=== PATIENT | female | born 1955 ===

== ENCOUNTER 2023-12-31 08:48 | Outpatient (AMB) | payer MEDICARE, SELFPAY ==
[2023-12-31 08:56] VITALS: BP 112/64; PULSE 72; O2SAT 98; BMI 29.0
--- NOTE | 2023-12-31 08:56 | A.OFFVIS_ITS ---
Vital Signs 12/31/23 08:56 Height 5 ft Weight 148 lb 9.465 oz BMI 29.0 BP 112/64 Blood Pressure Location Rt brachial Position Sitting Pulse 72 Pulse Source Pulse Oximeter Pulse Oximetry (%) 98 Oxygen Delivery Method Room Air Intake Visit Reasons: Joint Pain/cm Intake Note: New pt presents today for joint pain consult. FH of Lupus Reports pain in shoulders, arms, hands and feet since. Pain started November 2022. 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 The condition started about a year ago when she started having will joint pain and stiffness including her shoulders, hands, neck, knees. She went to PT which was helpful, afterwards her symptoms back, she went to another round of physical therapy, this time it was not helpful. She states that she is having pain and stiffness in her shoulders, stiffness in her hands, knees, ankles and feet. Morning stiffness of her hands lasts 1-2 hours. Does not believe she has any joint swelling. She denies any weight change or fever. She has noted a change and increased pigmentation on her PIP is bilaterally more noticeable on the right. She denies any skin rashes otherwise. Was prescribed Celebrex which was helpful, she was prescribed prednisone and it did not help. Tylenol also provide some relief. She denies any history of DVT/PE. She stated that in 1987 she was diagnosed with rheumatic fever and was prescribed penicillin, she was allergic to penicillin and she was switched to another antibiotic which she took for a total of 3 years. She has not had any current rheumatic fever. Her sister has SLE as well as her niece [facility] Medical History Rheumatic fever Papilloma of breast Mixed dyslipidemia Alopecia Anxiety Family History Brother Family history of lupus erythematosus Sister Lupus (systemic lupus erythematosus) Family/Other Family history of lupus erythematosus Mother Esophageal cancer Mother Aneurysm Social History Household Members: Family Alcohol intake: current Alcohol intake frequency: does not drink Patient Tobacco Use Status: Never used Tobacco Current occupational status: employed Female Reproductive History Menstrual Total pregnancies: 1 Number of Living Children: 1 Review of Systems Const Denies fever(s), Denies weight gain and Denies weight loss Eyes Reports blurry vision ENT Reports dry mouth Resp Reports cough GI Reports constipation and Reports heartburn Musc Reports arthralgias, Denies joint swelling and Reports stiffness Skin/Breast Reports rash Psych Reports abnormal sleep pattern and Reports anxiety Physical Exam Vital Signs: Last Vital Signs Pulse 72 12/31/23 08:56 BP 112/64 12/31/23 08:56 Pulse Ox 98 12/31/23 08:56 Oxygen Delivery Method Room Air 12/31/23 08:56 BMI result Body Mass Index 29.0 Const General: cooperative, healthy appearing and comfortable Nutritional Appearance: overweight Orientation/consciousness: patient oriented x3 Limitations: no limitations HEENT Head: Yes normocephalic and Yes atraumatic Mouth: moist mucous membranes Resp Effort & Inspection: normal respiratory effort and able to speak in complete sentences Auscultation: clear to auscultation bilaterally Cardio Rate: regular rate Rhythm: regular rhythm Skin Other: Mildly increased pigmentation on the dorsum of her PIPs General skin exam: no rashes or lesions noted Neuro General: patient oriented x3 Extrem Other: Bilateral limited shoulder abduction Normal range of motion of both elbows without pain Minimal bilateral wrist tenderness Bilateral wrist pain with full flexion and extension No MCP tenderness bilaterally Multiple tender PIP is bilaterally 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 HISTORY: bunion, heavy feelings ? TECHNIQUE: 3 views radiographs of the bilateral feet ? COMPARISON: None ? FINDINGS: Right: The foot demonstrates normal mineralization with no fracture or malalignment. Hallux valgus deformity. The visualized articulations are normal. Posterior recess joint effusion. No significant soft tissue swelling is identified. ? Left: No acute fracture or dislocation. Decreased mineralization. Hallux valgus deformity. The visualized articulations are grossly within normal limits. Small calcaneal spur. ? IMPRESSION IMPRESSION: No acute fracture or dislocation of the bilateral feet Mild bilateral hallux valgus deformities ++++RF +ZBIGNIEW 1:640 homogeneous Assessment & Plan Assessment & Plan (1) Inflammatory arthritis: Code(s): M19.90 - Unspecified osteoarthritis, unspecified site Category: Medical Plan: This is a 68-year-old female who presents for evaluation of multiple joint pain. On exam she has multiple tender joints. Recent labs showed significantly elevated rheumatoid factor, positive ZBIGNIEW. She has history of rheumatic fever. She has a sister with SLE. Will order comprehensive serology to screen for underlying autoimmune rheumatic disease. Check x-rays of involved joints Start Medrol therapeutic trial Follow-up in 4-5 weeks Plan I spent 47 minutes reviewing patient's chart, evaluating patient, ordering diagnostic workup, counseling patient and documenting in the chart Orders: Orders ZBIGNIEW Reflex Titer and Pattern Today M32.9 - Systemic lupus erythematosus, unspecified Anti DNA DS Antibody Today M32.9 - Systemic lupus erythematosus, unspecified Complement C4 Today M32.9 - Systemic lupus erythematosus, unspecified C Reactive Protein Today M32.9 - Systemic lupus erythematosus, unspecified Erythrocyte Sedimentation Rate Today M32.9 - Systemic lupus erythematosus, unspecified Sjogren's Antibodies Today M32.9 - Systemic lupus erythematosus, unspecified UA w Microscopic Today M32.9 - Systemic lupus erythematosus, unspecified Comprehensive Met. Panel Today M32.9 - Systemic lupus erythematosus, unspecified Immunofixation Pnl, Serum Today M32.9 - Systemic lupus erythematosus, unspecified Protein Electrophoresis, Serum Today M32.9 - Systemic lupus erythematosus, unspecified Cyclic Citrullinated Peptide Today M25.50 - Pain in unspecified joint Rheumatoid Factor Today M25.50 - Pain in unspecified joint Angiotensin Converting Enzyme Today D86.9 - Sarcoidosis, unspecified MSA Panel Extended Today M60.9 - Myositis, unspecified Scleroderma 12 Panel Today M34.9 - Systemic sclerosis, unspecified Creatine Kinase Total Today G72.9 - Myopathy, unspecified XR ankle LT min 3V Today M1.90 - Unspecified osteoarthritis, unspecified site XR ankle RT min 3V Today M1. - Unspecified osteoarthritis, unspecified site XR hand wrist LT Today M1 - Unspecified osteoarthritis, unspecified site XR shoulder LT min 2V Today M1.90 - Unspecified osteoarthritis, unspecified site XR shoulder RT min 2V Today M1 - Unspecified osteoarthritis, unspecified site Anti Extractable Nuclear Ag Today M3.9 - Systemic lupus erythematosus, unspecified Complement C3 Today M3.9 - Systemic lupus erythematosus, unspecified DNA Double Stranded-Crithidia Today M3.9 - Systemic lupus erythematosus, unspecified Protein Creatinine Ratio, Ur Today M3.9 - Systemic lupus erythematosus, unspecified Complete Blood Count Auto Diff Today M3. - Systemic lupus erythematosus, unspecified Hepatitis A,B,C Profile Today Z11.59 - Encounter for screening for other viral diseases T Spot TB Today Z11.7 - Encounter for testing for latent tuberculosis infection XR hand wrist RT Today M1 - Unspecified osteoarthritis, unspecified site Medications: New methylprednisolone (Medrol) take 4 tabs daily for 1 week, 3 tabs daily for 1 week, 2 tabs daily for 1 week, 1 tab daily for 1 week then stop 70 tabs 0RF Coding Level of Care Code New Pt Level 4 (48062) Diagnoses Inflammatory arthritis
== END 2023-12-31 09:32 | disposition home or self-care (01) ==
PROVIDERS: PCP Physician Assistant Medical; Visit Provider Student in an Organized Health Care Education/Training Program
DX: M19.90 Unspecified osteoarthritis, unspecified site (principal)
CPT/HCPCS: 99204

== ENCOUNTER 2023-12-31 09:51 | Outpatient (REF) | payer MEDICARE, SELFPAY ==
[2023-12-31 11:27] LABS: Appearance Urine Clear; Color Urine Yellow; Glucose Urine UA Negative (Negative); Leukocyte Esterase Urine Negative (Negative); Nitrite Urine Negative (Negative); UMIC TRIGGER UA YES; Urine Blood Trace (Negative); Urine Ketones Negative (Negative); Urine Protein Negative (Neg-Trace)
[2023-12-31 11:31] LABS: Bacteria Urine None Seen (None Seen); Hyaline Casts Urine 0-2 /LPF (0-2); Squamous Epithelial Cell Urine 0-2 /HPF (0-2); WBC Urine 0-5 /HPF (0-5)
[2023-12-31 11:37] LABS: MANUAL DIFF FLAG NO
[2023-12-31 11:41] LABS: Basophils Percent Auto 0.6 % (0-2); Eosinophils Absolute Auto 0.2 X10*3/uL (0.0-0.4); Eosinophils Percent Auto 3.4 % (0-4); Imm Gran Abs Auto 0.02 X10*3/uL (0.00-0.03); Imm Gran Pct Auto 0.3 % (0.0-0.4); Lymphocytes Absolute Auto 2.9 X10*3/uL (1.2-4.9); Lymphocytes Percent Auto 41.2 % (20-40); Mean Corpuscular HGB Conc 32.4 g/dl (31.0-35.0); Mean Corpuscular Hemoglobin 28.6 pg (27.0-33.0); Mean Corpuscular Volume 88.3 fL (80.0-98.0); Mean Platelet Volume 9.1 fL (9.4-12.3); Monocytes Absolute Auto 0.5 X10*3/uL (0.1-1.2); Neutrophils Absolute Auto 3.3 x10*3/uL (2.0-8.3); Neutrophils Percent Auto 47.5 % (45-73); Platelet Count 340 X10*3/uL (160-400); Red Blood Count 4.19 X10*6/uL (4.20-5.50); Red Cell Distribution Width 13.2 % (11.0-16.0)
[2023-12-31 12:06] LABS: Alanine Aminotransferase 13 U/L (0-31); Albumin Level 4.2 g/dL (3.5-5.0); Alkaline Phosphatase 100 U/L (39-117); Anion Gap 10 (12-20); Aspartate Amino Transferase 17 U/L (5-31); Bilirubin Total 0.4 mg/dL (0.0-1.0); Blood Urea Nitrogen 10 mg/dL (9-16); C Reactive Protein 0.31 mg/dL (< or = 0.50); Carbon Dioxide 29 mmol/L (22-29); Chloride 105 mmol/L (96-108); Creatinine Urine 48.71 mg/dL; Estimated Glomerular Filt Rate > 60; Glucose Random 89 mg/dL (60-115); Potassium 3.2 mmol/L (3.3-5.1); Protein/Creatinine Ratio, Ur 0.18 (<0.2); Sodium 141 mmol/L (135-145); Total Protein 8.2 g/dL (6.5-8.0); Total Protein Urine Random 9 mg/dL (<12)
[2023-12-31 12:20] LABS: HBS Num1 346.88 mIU/mL (0-7.99); HBc Num1 0.19 S/CO (0.00-0.79); HBsAGNum1 0.24 S/CO (0.00-0.99); Hepatitis A Antibody IgM 0.31 Index (0-0.79); Hepatitis B Core Antibody Nonreactive (Nonreactive); Hepatitis B Surface Antigen Negative (Negative); ~HepC Num1 0.33 S/CO (0.00-0.79); ~Hepatitis A Antibody IgM Nonreactive (Nonreactive); ~Hepatitis B Surface Antibody REACTIVE (Nonreactive); ~Hepatitis C Antibody Nonreactive (Nonreactive)
[2023-12-31 12:22] LABS: Rheumatoid Factor 329.9 IU/mL (<15.0)
[2023-12-31 12:25] LABS: Erythrocyte Sedimentation Rate 50 MM/HR (0-20)
[2024-01-01 20:09] LABS: Anti DNA DS Antibody 1 IU/mL; Antibody to SS-A Antigen <1.0 NEG AI (<1.0 NEG); Antibody to SS-B Antigen <1.0 NEG AI (<1.0 NEG); SM/Ribonucleoprotein Ab 1.1 POS AI (<1.0 NEG); Smith Protein <1.0 NEG AI (<1.0 NEG)
[2024-01-01 22:18] LABS: Complement C3 128 mg/dL (83-193)
[2024-01-02 14:44] LABS: Cyclic Citrullinated Peptide >250 UNITS
[2024-01-02 21:19] LABS: Prot Elec - Alpha1 0.3 g/dL (0.2-0.3); Prot Elec - Alpha2 0.8 g/dL (0.5-0.9); Prot Elec - Beta 1 0.5 g/dL (0.4-0.6); Prot Elec - Beta 2 0.5 g/dL (0.2-0.5); Prot Elec - Gamma 1.7 g/dL (0.8-1.7); Prot Elec - Total Protein 7.7 g/dL (6.1-8.1)
[2024-01-05 14:28] LABS: Anti Nuclear Antibody Pattern Nuclear, Homogeneous; Anti Nuclear Antibody Screen POSITIVE (NEGATIVE)
[2024-01-05 21:53] LABS: TS Negative Control Passed; TS Panel A 1; TS Panel B 0; TS Positive Control Passed; TSpotTB Negative (Negative)
[2024-01-05 22:08] LABS: Angiotensin Converting Enzyme 35 U/L (9-67); IgA 293 mg/dL (70-320); IgG 1449 mg/dL (600-1540); IgM 120 mg/dL (50-300)
[2024-01-07 16:39] LABS: DNAds, Crithidia Antibody 1:40 titer (<1:10); DNAds, Crithidia Antibody Positive (Negative)
[2024-01-12 11:39] LABS: Cytosolic 5'nuc 1A Ab IgG <5 Units; Ej Ab <11 SI (<11); HMGCR Ab IgG <2 CU (<20); Jo-1 Ab <11 SI (<11); MDA5 Ab <11 SI (<11); Mi-2 alpha Ab <11 SI (<11); Mi-2 beta Ab <11 SI (<11); NXP-2 (MJ) Ab <11 SI (<11); Oj Ab <11 SI (<11); Pl-12 Ab 16 SI (<11); Pl-7 Ab <11 SI (<11); SRP Ab <11 SI (<11); TIF1 gamma Ab <11 SI (<11)
[2024-01-13 16:48] LABS: Centromere Protein A Ab <11 SI (<11); Centromere Protein B Ab <11 SI (<11); Fibrillarin Ab <11 SI (<11); PM SCL 100 Ab <11 SI (<11); PM SCL 75 Ab <11 SI (<11); RNA Polymerase III RP11 Ab <11 SI (<11); RNA Polymerase III RP155 Ab <11 SI (<11); SCL-70 Extractable Nuclear Ab <11 SI (<11); Th-To Ab 85 SI (<11); U1 SNRNP RNP 70KD <11 SI (<11); U1 SNRNP RNP A <11 SI (<11); U1 SNRNP RNP C <11 SI (<11)
== END 2023-12-31 09:52 | disposition home or self-care (01) ==
LOC: HO.10HDL 09:51
PROVIDERS: Visit Provider Student in an Organized Health Care Education/Training Program
DX: M19.90 Unspecified osteoarthritis, unspecified site (principal); M32.9 Systemic lupus erythematosus, unspecified; M25.50 Pain in unspecified joint; M60.9 Myositis, unspecified; D86.9 Sarcoidosis, unspecified; G72.9 Myopathy, unspecified; M34.9 Systemic sclerosis, unspecified; Z11.59 Encounter for screening for other viral diseases; Z11.7 Encounter for testing for latent tuberculosis infection; Z72.89 Other problems related to lifestyle
CPT/HCPCS: 36415; 80053; 81001; 82164; 82550; 82570; 82784; 83516; 83520; 84156; 84165; 84182; 85025; 85652; 86038; 86039; 86140; 86160; 86200; 86225; 86235; 86255; 86334; 86431; 86481; 86704; 86706; 86709; 86803; 87340; 99202

== ENCOUNTER 2024-02-02 12:17 | Outpatient (REF) | payer MEDICARE, SELFPAY ==
--- NOTE | ~2024-02-02 | XR_ITS ---
EXAMINATION: 1. RADIOGRAPHS LEFT SHOULDER 2. RADIOGRAPHS RIGHT SHOULDER 3. RADIOGRAPHS LEFT HAND/WRIST 4. RADIOGRAPHS RIGHT HAND/WRIST 5. RADIOGRAPHS LEFT ANKLE 6. RADIOGRAPHS RIGHT ANKLE CLINICAL INFORMATION: Osteoarthritis COMPARISON: None TECHNIQUE: 4 views of each shoulder, 4 views of each hand/wrist and 3 views of each ankle were obtained. FINDINGS: Right shoulder: Visualized portions of the proximal right humerus demonstrate no fracture. Humeral head demonstrates good articulation with the glenoid fossa. There are mild degenerative changes of the right glenohumeral and acromioclavicular joints. Visualized right-sided ribs and lung parenchyma are unremarkable. Left shoulder: Visualized portions of the proximal left humerus demonstrate no fracture. Humeral head demonstrates good articulation with the glenoid fossa. There are mild degenerative changes of the left glenohumeral and acromioclavicular joints. Visualized left-sided ribs and lung parenchyma are unremarkable. Right hand/wrist: Diffuse osteopenia. Visualized portion of the distal radius and demonstrate no fracture. Carpal rows are maintained. No carpal bone fracture. No metacarpal or phalangeal fracture. Mild degenerative changes of scattered IP joints. No localized soft tissue swelling. No radiopaque foreign body. Left hand/wrist: Diffuse osteopenia. Visualized portion of the distal radius and demonstrate no fracture. Carpal rows are maintained. No carpal bone fracture. No metacarpal or phalangeal fracture. Mild degenerative changes of scattered IP joints. No localized soft tissue swelling. No radiopaque foreign body. Right ankle: Visualized portion of the distal tibia and fibula demonstrate no fracture. Ankle mortise is well-maintained. No localized soft tissue swelling. No radiopaque foreign body. No gross ankle joint effusion. Small plantar calcaneal enthesophyte. Left ankle: Visualized portion of the distal tibia and fibula demonstrate no fracture. Ankle mortise is well-maintained. No localized soft tissue swelling. No radiopaque foreign body. Small plantar calcaneal enthesophyte. XR/XR ankle LT min 3V IMPRESSION: 1. Diffuse osteopenia. 2. Mild degenerative changes of both shoulders. 3. Mild degenerative changes of both hands and wrists without fracture. 4. Unremarkable radiographs of the bilateral ankles.
--- NOTE | ~2024-02-02 | XR_ITS ---
EXAMINATION: 1. RADIOGRAPHS LEFT SHOULDER 2. RADIOGRAPHS RIGHT SHOULDER 3. RADIOGRAPHS LEFT HAND/WRIST 4. RADIOGRAPHS RIGHT HAND/WRIST 5. RADIOGRAPHS LEFT ANKLE 6. RADIOGRAPHS RIGHT ANKLE CLINICAL INFORMATION: Osteoarthritis COMPARISON: None TECHNIQUE: 4 views of each shoulder, 4 views of each hand/wrist and 3 views of each ankle were obtained. FINDINGS: Right shoulder: Visualized portions of the proximal right humerus demonstrate no fracture. Humeral head demonstrates good articulation with the glenoid fossa. There are mild degenerative changes of the right glenohumeral and acromioclavicular joints. Visualized right-sided ribs and lung parenchyma are unremarkable. Left shoulder: Visualized portions of the proximal left humerus demonstrate no fracture. Humeral head demonstrates good articulation with the glenoid fossa. There are mild degenerative changes of the left glenohumeral and acromioclavicular joints. Visualized left-sided ribs and lung parenchyma are unremarkable. Right hand/wrist: Diffuse osteopenia. Visualized portion of the distal radius and demonstrate no fracture. Carpal rows are maintained. No carpal bone fracture. No metacarpal or phalangeal fracture. Mild degenerative changes of scattered IP joints. No localized soft tissue swelling. No radiopaque foreign body. Left hand/wrist: Diffuse osteopenia. Visualized portion of the distal radius and demonstrate no fracture. Carpal rows are maintained. No carpal bone fracture. No metacarpal or phalangeal fracture. Mild degenerative changes of scattered IP joints. No localized soft tissue swelling. No radiopaque foreign body. Right ankle: Visualized portion of the distal tibia and fibula demonstrate no fracture. Ankle mortise is well-maintained. No localized soft tissue swelling. No radiopaque foreign body. No gross ankle joint effusion. Small plantar calcaneal enthesophyte. Left ankle: Visualized portion of the distal tibia and fibula demonstrate no fracture. Ankle mortise is well-maintained. No localized soft tissue swelling. No radiopaque foreign body. Small plantar calcaneal enthesophyte. XR/XR ankle RT min 3V IMPRESSION: 1. Diffuse osteopenia. 2. Mild degenerative changes of both shoulders. 3. Mild degenerative changes of both hands and wrists without fracture. 4. Unremarkable radiographs of the bilateral ankles.
--- NOTE | ~2024-02-02 | XR_ITS ---
EXAMINATION: 1. RADIOGRAPHS LEFT SHOULDER 2. RADIOGRAPHS RIGHT SHOULDER 3. RADIOGRAPHS LEFT HAND/WRIST 4. RADIOGRAPHS RIGHT HAND/WRIST 5. RADIOGRAPHS LEFT ANKLE 6. RADIOGRAPHS RIGHT ANKLE CLINICAL INFORMATION: Osteoarthritis COMPARISON: None TECHNIQUE: 4 views of each shoulder, 4 views of each hand/wrist and 3 views of each ankle were obtained. FINDINGS: Right shoulder: Visualized portions of the proximal right humerus demonstrate no fracture. Humeral head demonstrates good articulation with the glenoid fossa. There are mild degenerative changes of the right glenohumeral and acromioclavicular joints. Visualized right-sided ribs and lung parenchyma are unremarkable. Left shoulder: Visualized portions of the proximal left humerus demonstrate no fracture. Humeral head demonstrates good articulation with the glenoid fossa. There are mild degenerative changes of the left glenohumeral and acromioclavicular joints. Visualized left-sided ribs and lung parenchyma are unremarkable. Right hand/wrist: Diffuse osteopenia. Visualized portion of the distal radius and demonstrate no fracture. Carpal rows are maintained. No carpal bone fracture. No metacarpal or phalangeal fracture. Mild degenerative changes of scattered IP joints. No localized soft tissue swelling. No radiopaque foreign body. Left hand/wrist: Diffuse osteopenia. Visualized portion of the distal radius and demonstrate no fracture. Carpal rows are maintained. No carpal bone fracture. No metacarpal or phalangeal fracture. Mild degenerative changes of scattered IP joints. No localized soft tissue swelling. No radiopaque foreign body. Right ankle: Visualized portion of the distal tibia and fibula demonstrate no fracture. Ankle mortise is well-maintained. No localized soft tissue swelling. No radiopaque foreign body. No gross ankle joint effusion. Small plantar calcaneal enthesophyte. Left ankle: Visualized portion of the distal tibia and fibula demonstrate no fracture. Ankle mortise is well-maintained. No localized soft tissue swelling. No radiopaque foreign body. Small plantar calcaneal enthesophyte. XR/XR hand wrist LT IMPRESSION: 1. Diffuse osteopenia. 2. Mild degenerative changes of both shoulders. 3. Mild degenerative changes of both hands and wrists without fracture. 4. Unremarkable radiographs of the bilateral ankles.
--- NOTE | ~2024-02-02 | XR_ITS ---
EXAMINATION: 1. RADIOGRAPHS LEFT SHOULDER 2. RADIOGRAPHS RIGHT SHOULDER 3. RADIOGRAPHS LEFT HAND/WRIST 4. RADIOGRAPHS RIGHT HAND/WRIST 5. RADIOGRAPHS LEFT ANKLE 6. RADIOGRAPHS RIGHT ANKLE CLINICAL INFORMATION: Osteoarthritis COMPARISON: None TECHNIQUE: 4 views of each shoulder, 4 views of each hand/wrist and 3 views of each ankle were obtained. FINDINGS: Right shoulder: Visualized portions of the proximal right humerus demonstrate no fracture. Humeral head demonstrates good articulation with the glenoid fossa. There are mild degenerative changes of the right glenohumeral and acromioclavicular joints. Visualized right-sided ribs and lung parenchyma are unremarkable. Left shoulder: Visualized portions of the proximal left humerus demonstrate no fracture. Humeral head demonstrates good articulation with the glenoid fossa. There are mild degenerative changes of the left glenohumeral and acromioclavicular joints. Visualized left-sided ribs and lung parenchyma are unremarkable. Right hand/wrist: Diffuse osteopenia. Visualized portion of the distal radius and demonstrate no fracture. Carpal rows are maintained. No carpal bone fracture. No metacarpal or phalangeal fracture. Mild degenerative changes of scattered IP joints. No localized soft tissue swelling. No radiopaque foreign body. Left hand/wrist: Diffuse osteopenia. Visualized portion of the distal radius and demonstrate no fracture. Carpal rows are maintained. No carpal bone fracture. No metacarpal or phalangeal fracture. Mild degenerative changes of scattered IP joints. No localized soft tissue swelling. No radiopaque foreign body. Right ankle: Visualized portion of the distal tibia and fibula demonstrate no fracture. Ankle mortise is well-maintained. No localized soft tissue swelling. No radiopaque foreign body. No gross ankle joint effusion. Small plantar calcaneal enthesophyte. Left ankle: Visualized portion of the distal tibia and fibula demonstrate no fracture. Ankle mortise is well-maintained. No localized soft tissue swelling. No radiopaque foreign body. Small plantar calcaneal enthesophyte. XR/XR hand wrist RT IMPRESSION: 1. Diffuse osteopenia. 2. Mild degenerative changes of both shoulders. 3. Mild degenerative changes of both hands and wrists without fracture. 4. Unremarkable radiographs of the bilateral ankles.
--- NOTE | ~2024-02-02 | XR_ITS ---
EXAMINATION: 1. RADIOGRAPHS LEFT SHOULDER 2. RADIOGRAPHS RIGHT SHOULDER 3. RADIOGRAPHS LEFT HAND/WRIST 4. RADIOGRAPHS RIGHT HAND/WRIST 5. RADIOGRAPHS LEFT ANKLE 6. RADIOGRAPHS RIGHT ANKLE CLINICAL INFORMATION: Osteoarthritis COMPARISON: None TECHNIQUE: 4 views of each shoulder, 4 views of each hand/wrist and 3 views of each ankle were obtained. FINDINGS: Right shoulder: Visualized portions of the proximal right humerus demonstrate no fracture. Humeral head demonstrates good articulation with the glenoid fossa. There are mild degenerative changes of the right glenohumeral and acromioclavicular joints. Visualized right-sided ribs and lung parenchyma are unremarkable. Left shoulder: Visualized portions of the proximal left humerus demonstrate no fracture. Humeral head demonstrates good articulation with the glenoid fossa. There are mild degenerative changes of the left glenohumeral and acromioclavicular joints. Visualized left-sided ribs and lung parenchyma are unremarkable. Right hand/wrist: Diffuse osteopenia. Visualized portion of the distal radius and demonstrate no fracture. Carpal rows are maintained. No carpal bone fracture. No metacarpal or phalangeal fracture. Mild degenerative changes of scattered IP joints. No localized soft tissue swelling. No radiopaque foreign body. Left hand/wrist: Diffuse osteopenia. Visualized portion of the distal radius and demonstrate no fracture. Carpal rows are maintained. No carpal bone fracture. No metacarpal or phalangeal fracture. Mild degenerative changes of scattered IP joints. No localized soft tissue swelling. No radiopaque foreign body. Right ankle: Visualized portion of the distal tibia and fibula demonstrate no fracture. Ankle mortise is well-maintained. No localized soft tissue swelling. No radiopaque foreign body. No gross ankle joint effusion. Small plantar calcaneal enthesophyte. Left ankle: Visualized portion of the distal tibia and fibula demonstrate no fracture. Ankle mortise is well-maintained. No localized soft tissue swelling. No radiopaque foreign body. Small plantar calcaneal enthesophyte. XR/XR shoulder RT min 2V IMPRESSION: 1. Diffuse osteopenia. 2. Mild degenerative changes of both shoulders. 3. Mild degenerative changes of both hands and wrists without fracture. 4. Unremarkable radiographs of the bilateral ankles.
--- NOTE | ~2024-02-02 | XR_ITS ---
EXAMINATION: 1. RADIOGRAPHS LEFT SHOULDER 2. RADIOGRAPHS RIGHT SHOULDER 3. RADIOGRAPHS LEFT HAND/WRIST 4. RADIOGRAPHS RIGHT HAND/WRIST 5. RADIOGRAPHS LEFT ANKLE 6. RADIOGRAPHS RIGHT ANKLE CLINICAL INFORMATION: Osteoarthritis COMPARISON: None TECHNIQUE: 4 views of each shoulder, 4 views of each hand/wrist and 3 views of each ankle were obtained. FINDINGS: Right shoulder: Visualized portions of the proximal right humerus demonstrate no fracture. Humeral head demonstrates good articulation with the glenoid fossa. There are mild degenerative changes of the right glenohumeral and acromioclavicular joints. Visualized right-sided ribs and lung parenchyma are unremarkable. Left shoulder: Visualized portions of the proximal left humerus demonstrate no fracture. Humeral head demonstrates good articulation with the glenoid fossa. There are mild degenerative changes of the left glenohumeral and acromioclavicular joints. Visualized left-sided ribs and lung parenchyma are unremarkable. Right hand/wrist: Diffuse osteopenia. Visualized portion of the distal radius and demonstrate no fracture. Carpal rows are maintained. No carpal bone fracture. No metacarpal or phalangeal fracture. Mild degenerative changes of scattered IP joints. No localized soft tissue swelling. No radiopaque foreign body. Left hand/wrist: Diffuse osteopenia. Visualized portion of the distal radius and demonstrate no fracture. Carpal rows are maintained. No carpal bone fracture. No metacarpal or phalangeal fracture. Mild degenerative changes of scattered IP joints. No localized soft tissue swelling. No radiopaque foreign body. Right ankle: Visualized portion of the distal tibia and fibula demonstrate no fracture. Ankle mortise is well-maintained. No localized soft tissue swelling. No radiopaque foreign body. No gross ankle joint effusion. Small plantar calcaneal enthesophyte. Left ankle: Visualized portion of the distal tibia and fibula demonstrate no fracture. Ankle mortise is well-maintained. No localized soft tissue swelling. No radiopaque foreign body. Small plantar calcaneal enthesophyte. XR/XR shoulder LT min 2V IMPRESSION: 1. Diffuse osteopenia. 2. Mild degenerative changes of both shoulders. 3. Mild degenerative changes of both hands and wrists without fracture. 4. Unremarkable radiographs of the bilateral ankles.
== END 2024-02-02 12:18 | disposition home or self-care (01) ==
LOC: HO.XRAY 12:17
PROVIDERS: PCP Physician Assistant Medical; Visit Provider Student in an Organized Health Care Education/Training Program
DX: M19.90 Unspecified osteoarthritis, unspecified site (principal)
CPT/HCPCS: 73030; 73110; 73130; 73610

== ENCOUNTER 2024-02-11 14:35 | Outpatient (AMB) | payer MEDICARE, SELFPAY ==
[2024-02-11 14:38] VITALS: BP 102/68; PULSE 58; O2SAT 96; BMI 29.1
--- NOTE | 2024-02-11 14:38 | MHC.OFFVIS ---
Vital Signs 02/11/24 14:38 Height 5 ft Weight 148 lb 12.992 oz BMI 29.1 BP 102/68 Blood Pressure Location Lt brachial Position Sitting Pulse 58 Pulse Source Pulse Oximeter Pulse Oximetry (%) 96 Oxygen Delivery Method Room Air Intake Visit Reasons: inflammatory arthritis Intake Note: Patient last seen on 12/31/23 present today for follow up and test results. Allergies Penicillins Allergy (Verified 02/11/24 14:41) Itching Medication List - Last Reconciled 02/11/24 by Luisito Pretty MD acetaminophen 1,000 mg PO Q6H PRN alendronate 70 mg PO QWEEK amlodipine 5 mg PO DAILY atorvastatin 20 mg PO celecoxib mg PO ibuprofen mg PO methylprednisolone (Medrol) take 4 tabs daily for 1 week, 3 tabs daily for 1 week, 2 tabs daily for 1 week, 1 tab daily for 1 week then stop pantoprazole 20 mg PO DAILY HPI Comments Details: Patient returns for follow-up after completion of her diagnostic workup. Stated that the Medrol pack was very helpful. Especially at 3 tablets a day. She stated that 2 tablets today was not as helpful. Then it seems like the flare of joint pain self-resolved. She states that she has history of GERD. She had an endoscopy in the past. She sleeps elevated around a 40 degree angle and takes pantoprazole daily. Denies any history suggestive of Raynaud's. No skin thickening. No unintentional weight loss Initial history: This is a 68-year-old female who presents for evaluation of multiple joint pain. The condition started about a year ago when she started having will joint pain and stiffness including her shoulders, hands, neck, knees. She went to PT which was helpful, afterwards her symptoms back, she went to another round of physical therapy, this time it was not helpful. She states that she is having pain and stiffness in her shoulders, stiffness in her hands, knees, ankles and feet. Morning stiffness of her hands lasts 1-2 hours. Does not believe she has any joint swelling. She denies any weight change or fever. She has noted a change and increased pigmentation on her PIP is bilaterally more noticeable on the right. She denies any skin rashes otherwise. Was prescribed Celebrex which was helpful, she was prescribed prednisone and it did not help. Tylenol also provide some relief. She denies any history of DVT/PE. She stated that in 1987 she was diagnosed with rheumatic fever and was prescribed penicillin, she was allergic to penicillin and she was switched to another antibiotic which she took for a total of 3 years. She has not had any current rheumatic fever. Her sister has SLE as well as her niece [facility] Medical History (Updated 02/11/24 @ 17:03 by Luisito Pretty MD) Rheumatic fever Papilloma of breast Mixed dyslipidemia Alopecia Anxiety Family History Brother Family history of lupus erythematosus Sister Lupus (systemic lupus erythematosus) Family/Other Family history of lupus erythematosus Mother Esophageal cancer Mother Aneurysm Social History Household Members: Family Alcohol intake: current Alcohol intake frequency: does not drink Patient Tobacco Use Status: Never used Tobacco Current occupational status: employed Female Reproductive History Menstrual Total pregnancies: 1 Number of Living Children: 1 Review of Systems Const Denies fever(s), Denies weight gain and Denies weight loss Musc Reports arthralgias and Denies joint swelling Psych Reports abnormal sleep pattern and Reports anxiety Physical Exam Vital Signs: Last Vital Signs Pulse 58 02/11/24 14:38 BP 102/68 02/11/24 14:38 Pulse Ox 96 02/11/24 14:38 Oxygen Delivery Method Room Air 02/11/24 14:38 BMI result Body Mass Index 29.1 Const General: cooperative, healthy appearing and comfortable Nutritional Appearance: overweight Orientation/consciousness: patient oriented x3 Limitations: no limitations HEENT Head: Yes normocephalic and Yes atraumatic Mouth: moist mucous membranes Resp Effort & Inspection: normal respiratory effort and able to speak in complete sentences Auscultation: clear to auscultation bilaterally Cardio Rate: regular rate Rhythm: regular rhythm Skin Other: Mildly increased pigmentation on the dorsum of her PIPs General skin exam: no rashes or lesions noted Neuro General: patient oriented x3 Extrem Other: No active synovitis today Normal nailfold capillaroscopy Results Reviewed Results Reviewed: X-RAY EXAM OF FOOT, COMPLETE (3 VIEWS) Exam Date: 09/17/2023 10:57 AM Ordering Diagnosis: Bunion of unspecified foot ? HISTORY: bunion, heavy feelings ? TECHNIQUE: 3 views radiographs of the bilateral feet ? COMPARISON: None ? FINDINGS: Right: The foot demonstrates normal mineralization with no fracture or malalignment. Hallux valgus deformity. The visualized articulations are normal. Posterior recess joint effusion. No significant soft tissue swelling is identified. ? Left: No acute fracture or dislocation. Decreased mineralization. Hallux valgus deformity. The visualized articulations are grossly within normal limits. Small calcaneal spur. ? IMPRESSION IMPRESSION: No acute fracture or dislocation of the bilateral feet Mild bilateral hallux valgus deformities ++++RF +ZBIGNIEW 1:640 homogeneous Assessment & Plan Assessment & Plan (1) Seropositive rheumatoid arthritis: Code(s): M05.9 - Rheumatoid arthritis with rheumatoid factor, unspecified Category: Medical Plan: This is a 68-year-old female who presents for evaluation of multiple joint pain. And positive rheumatoid factor. On initial exam patient had multiple tender joints. Symptoms responding to Medrol taper. Clinical picture consistent with inflammatory arthritis. 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 There is no scleroderma on exam, no Raynaud's, and she has normal nailfold capillaroscopy We discussed her diagnosis. At this time I think we should focus on her inflammatory arthritis. Discussed risks and benefits of hydroxychloroquine. Patient agreed to proceed. Start hydroxychloroquine 300 mg daily Medrol 4-8 mg once daily as needed for joint pain . Advised patient not to take Celebrex and Medrol in the same day We will discuss screening for ILD/PH with PFTs & 2D echo next visit Labs before next visit in 3 months (2) Long-term use of hydroxychloroquine: Code(s): Z79.899 - Other [facility] (current) drug therapy Category: Medical Plan: Discussed risk of retinopathy associated with hydroxychloroquine. Advised patient to follow-up regularly with lead business systems analyst Plan I spent 27 minutes reviewing patient's chart, evaluating patient, ordering diagnostic workup, counseling patient and documenting in the chart Orders: Orders Complement C4 3 Months M32.9 - Systemic lupus erythematosus, unspecified DNA Double Stranded-Crithidia 3 Months M32.9 - Systemic lupus erythematosus, unspecified UA w Microscopic 3 Months M32.9 - Systemic lupus erythematosus, unspecified Complete Blood Count Auto Diff 3 Months M32.9 - Systemic lupus erythematosus, unspecified Comprehensive Met. Panel 3 Months M32.9 - Systemic lupus erythematosus, unspecified Complement C3 3 Months M32.9 - Systemic lupus erythematosus, unspecified Protein Creatinine Ratio, Ur 3 Months M32.9 - Systemic lupus erythematosus, unspecified Medications: New hydroxychloroquine 300 mg (1.5 x 200 mg) PO DAILY 45 tabs 2RF Changed From methylprednisolone (Medrol) take 4 tabs daily for 1 week, 3 tabs daily for 1 week, 2 tabs daily for 1 week, 1 tab daily for 1 week then stop 70 tabs 0RF To methylprednisolone (Medrol) 4 - 8 mg (1 - 2 x 4 mg) PO DAILY PRN 30 tabs 1RF pain Coding Level of Care Code Est Pt Level 4 (86556) Diagnoses Seropositive rheumatoid arthritis M05.9 Long-term use of hydroxychloroquine Z79.899
== END 2024-02-11 15:25 | disposition home or self-care (01) ==
PROVIDERS: PCP Physician Assistant Medical; Visit Provider Student in an Organized Health Care Education/Training Program
DX: M05.79 Rheumatoid arthritis with rheumatoid factor of multiple sites without organ or systems involvement (principal); Z79.899 Other long term (current) drug therapy
CPT/HCPCS: 99214

== ENCOUNTER → 2024-02-11 14:35 | Outpatient (BNVA) | payer MEDICARE, SELFPAY | PROVIDERS: PCP Physician Assistant Medical; Visit Provider Student in an Organized Health Care Education/Training Program | DX: M05.9 Rheumatoid arthritis with rheumatoid factor, unspecified (principal); Z79.899 Other long term (current) drug therapy | CPT/HCPCS: 99212 ==

== ENCOUNTER 2024-05-11 08:07 | Outpatient (REF) | payer MEDICARE, SELFPAY ==
[2024-05-11 08:40] LABS: MANUAL DIFF FLAG NO
[2024-05-11 09:27] LABS: Basophils Percent Auto 0.7 % (0-2); Eosinophils Absolute Auto 0.1 X10*3/uL (0.0-0.4); Eosinophils Percent Auto 2.3 % (0-4); Hematocrit 40.1 % (37.0-47.0); Hemoglobin 13.2 g/dl (12.0-16.0); Imm Gran Abs Auto 0.01 X10*3/uL (0.00-0.03); Imm Gran Pct Auto 0.2 % (0.0-0.4); Lymphocytes Absolute Auto 2.3 X10*3/uL (1.2-4.9); Mean Corpuscular HGB Conc 32.9 g/dl (31.0-35.0); Mean Corpuscular Hemoglobin 29.5 pg (27.0-33.0); Mean Corpuscular Volume 89.7 fL (80.0-98.0); Mean Platelet Volume 8.9 fL (9.4-12.3); Monocytes Absolute Auto 0.4 X10*3/uL (0.1-1.2); Monocytes Percent Auto 6.8 % (2-11); Neutrophils Absolute Auto 2.7 x10*3/uL (2.0-8.3); Platelet Count 317 X10*3/uL (160-400); Red Blood Count 4.47 X10*6/uL (4.20-5.50); Red Cell Distribution Width 13.2 % (11.0-16.0); White Blood Count 5.6 X10*3/uL (4.8-10.8)
[2024-05-11 09:35] LABS: Appearance Urine Clear; Color Urine Yellow; Glucose Urine UA Negative (Negative); Leukocyte Esterase Urine Small (1+) (Negative); Nitrite Urine Negative (Negative); UMIC TRIGGER UA YES; Urine Blood Negative (Negative); Urine Ketones Negative (Negative); Urine Protein Negative (Neg-Trace)
[2024-05-11 10:14] LABS: Bacteria Urine None Seen (None Seen); Hyaline Casts Urine 0-2 /LPF (0-2); RBC Urine 0-2 /HPF (0-2); Squamous Epithelial Cell Urine 0-2 /HPF (0-2); WBC Urine 0-5 /HPF (0-5)
[2024-05-11 10:30] LABS: Alanine Aminotransferase 23 U/L (0-31); Albumin Level 4.3 g/dL (3.5-5.0); Alkaline Phosphatase 76 U/L (39-117); Anion Gap 9 (12-20); Aspartate Amino Transferase 21 U/L (5-31); Bilirubin Total 0.7 mg/dL (0.0-1.0); Blood Urea Nitrogen 10 mg/dL (9-16); Calcium 9.4 mg/dL (8.4-10.2); Carbon Dioxide 32 mmol/L (22-29); Chloride 105 mmol/L (96-108); Estimated Glomerular Filt Rate > 60; Glucose Random 91 mg/dL (60-115); Potassium 3.6 mmol/L (3.3-5.1); Sodium 142 mmol/L (135-145); Total Protein 7.4 g/dL (6.5-8.0)
[2024-05-11 10:34] LABS: Creatinine Urine 99.33 mg/dL; Protein/Creatinine Ratio, Ur 0.11 (<0.2); Total Protein Urine Random 11 mg/dL (<12)
[2024-05-13 23:48] LABS: Complement C3 130 mg/dL (83-193)
[2024-05-17 05:18] LABS: DNAds, Crithidia Antibody Negative (Negative)
== END 2024-05-11 08:08 | disposition home or self-care (01) ==
LOC: HO.LAB 08:07
PROVIDERS: Visit Provider Student in an Organized Health Care Education/Training Program
DX: M32.9 Systemic lupus erythematosus, unspecified (principal)
CPT/HCPCS: 36415; 80053; 81001; 82570; 84156; 85025; 86160; 86255

== ENCOUNTER 2024-05-13 13:32 | Outpatient (AMB) | payer MEDICARE, SELFPAY ==
[2024-05-13 13:39] VITALS: BMI 29.0
--- NOTE | 2024-05-13 13:39 | MHC.OFFVIS ---
Vital Signs 05/13/24 13:39 05/13/24 14:23 Height 5 ft 5 ft Weight 148 lb 9.465 oz 151 lb 14.376 oz BMI 29.0 29.7 BP 112/74 Blood Pressure Location Lt brachial Position Sitting Pulse 76 Pulse Source Pulse Oximeter Pulse Oximetry (%) 98 Oxygen Delivery Method Room Air Intake Visit Reasons: Overlap syndrome/cm Intake Note: Patient last seen by Doctor Luisito Pretty on 02/11/24. Presents today for Overlap Syndrome follow up and test results. Patient picked up a bottle of vitamin B12, would like to discuss with you. Allergies Penicillins Allergy (Verified 05/13/24 14:25) Itching Medication List - Last Reconciled 05/13/24 by Luisito Pretty MD acetaminophen 1,000 mg PO Q6H PRN alendronate 70 mg PO QWEEK amlodipine 5 mg PO DAILY atorvastatin 20 mg PO celecoxib mg PO hydroxychloroquine 300 mg (1.5 x 200 mg) PO DAILY ibuprofen mg PO methylprednisolone (Medrol) 4 - 8 mg (1 - 2 x 4 mg) PO DAILY PRN pantoprazole 20 mg PO DAILY HPI Comments Details: 68-year-old female with newly diagnosed seropositive RA who presents for follow-up. She has been taking hydroxychloroquine 300 mg daily regularly for the last 3 months. She also took the Medrol 4 mg 1 tab every other day. She states she has noticeable improvement. Joint pain swelling and morning stiffness significantly improved. She has noted thinning of her hair however. Initial history: This is a 68-year-old female who presents for evaluation of multiple joint pain. The condition started about a year ago when she started having will joint pain and stiffness including her shoulders, hands, neck, knees. She went to PT which was helpful, afterwards her symptoms back, she went to another round of physical therapy, this time it was not helpful. She states that she is having pain and stiffness in her shoulders, stiffness in her hands, knees, ankles and feet. Morning stiffness of her hands lasts 1-2 hours. Does not believe she has any joint swelling. She denies any weight change or fever. She has noted a change and increased pigmentation on her PIP is bilaterally more noticeable on the right. She denies any skin rashes otherwise. Was prescribed Celebrex which was helpful, she was prescribed prednisone and it did not help. Tylenol also provide some relief. She denies any history of DVT/PE. She stated that in 1987 she was diagnosed with rheumatic fever and was prescribed penicillin, she was allergic to penicillin and she was switched to another antibiotic which she took for a total of 3 years. She has not had any current rheumatic fever. Her sister has SLE as well as her niece [facility] Medical History Rheumatic fever Papilloma of breast Mixed dyslipidemia Alopecia Anxiety Family History Brother Family history of lupus erythematosus Sister Lupus (systemic lupus erythematosus) Family/Other Family history of lupus erythematosus Mother Esophageal cancer Mother Aneurysm Social History Household Members: Family Alcohol intake: current Alcohol intake frequency: does not drink Patient Tobacco Use Status: Never used Tobacco Current occupational status: employed Female Reproductive History Menstrual Total pregnancies: 1 Number of Living Children: 1 Review of Systems Const Denies fever(s), Denies weight gain and Denies weight loss Musc Denies arthralgias, Denies joint swelling and Denies stiffness Skin/Breast Reports alopecia and Denies rash Psych Reports abnormal sleep pattern and Reports anxiety Physical Exam Vital Signs: Last Vital Signs Pulse 76 05/13/24 14:23 BP 112/74 05/13/24 14:23 Pulse Ox 98 05/13/24 14:23 Oxygen Delivery Method Room Air 05/13/24 14:23 BMI result Body Mass Index 29.7 Const General: cooperative, healthy appearing and comfortable Nutritional Appearance: overweight Orientation/consciousness: patient oriented x3 Limitations: no limitations HEENT Head: Yes normocephalic and Yes atraumatic Mouth: moist mucous membranes Resp Effort & Inspection: normal respiratory effort and able to speak in complete sentences Auscultation: clear to auscultation bilaterally Cardio Rate: regular rate Rhythm: regular rhythm Skin Other: Thinning hair in the frontal area. No areas of alopecia areata noted General skin exam: no rashes or lesions noted Neuro General: patient oriented x3 Extrem Other: No active synovitis today Normal nailfold capillaroscopy Assessment & Plan Assessment & Plan (1) Seropositive rheumatoid arthritis: Comment: +++RF+++CCP ++Th/To +DsDNA dx 12/2023 HCQ 01/2024 effective Code(s): M05.9 - Rheumatoid arthritis with rheumatoid factor, unspecified Category: Medical Plan: This is a 68-year-old female with seropositive RA who presents for follow-up. Has been taking hydroxychloroquine 300 mg daily regularly for the last 3 months. Has also been taking Medrol 4 mg every other day. On exam her synovitis resolved. Continue hydroxychloroquine 200 mg daily. Can use Medrol 4 mg once daily as needed. Patient states that she has been having alopecia. She attributes it to hydroxychloroquine. While alopecia has been reported with hydroxychloroquine it certainly isn't a common side effect. Patient has reported alopecia since 06/2023 which was months before hydroxychloroquine was started. Advised patient to make an appointment with salesforce administrator. Labs before next visit in 3 months (2) Long-term use of hydroxychloroquine: Code(s): Z79.899 - Other supervisor [employer] (current) drug therapy Category: Medical Plan: Discussed risk of retinopathy associated with hydroxychloroquine. Advised patient to follow-up regularly with chemical laboratory technician (3) Abnormal laboratory test: Code(s): R89.9 - Unspecified abnormal finding in specimens from other organs, systems and tissues Category: Medical Plan: In addition to her strong positive rheumatoid factor and anti CCP antibodies, she also has positive Th/To antibody, low titer positive DsDNA by crithidiae & low titer positive DINING [employer]OP Ab. 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 There is no scleroderma on exam, no Raynaud's, and she has normal nailfold capillaroscopy Given potential overlap with scleroderma I discussed the potential risk of interstitial lung disease and pulmonary arterial hypertension. I will order PFT and 2D echo to screen for ILD and PAH Plan I spent 27 minutes reviewing patient's chart, evaluating patient, ordering diagnostic workup, counseling patient and documenting in the chart Orders: Orders Complement C4 3 Months M32.9 - Systemic lupus erythematosus, unspecified C Reactive Protein 3 Months M32.9 - Systemic lupus erythematosus, unspecified Protein Creatinine Ratio, Ur 3 Months M32.9 - Systemic lupus erythematosus, unspecified UA w Microscopic 3 Months M32.9 - Systemic lupus erythematosus, unspecified Anti DNA DS Antibody 3 Months M32.9 - Systemic lupus erythematosus, unspecified Complement C3 3 Months M32.9 - Systemic lupus erythematosus, unspecified DNA Double Stranded-Crithidia 3 Months M32.9 - Systemic lupus erythematosus, unspecified Erythrocyte Sedimentation Rate 3 Months M32.9 - Systemic lupus erythematosus, unspecified Complete Blood Count Auto Diff 3 Months M32.9 - Systemic lupus erythematosus, unspecified Comprehensive Met. Panel 3 Months M32.9 - Systemic lupus erythematosus, unspecified CA echo transthoracic complete Today R06.02 - Shortness of breath PFT pulmonary function test Today R06.02 - Shortness of breath Medications: Refilled hydroxychloroquine 300 mg (1.5 x 200 mg) PO DAILY 135 tabs 1RF Coding Level of Care Code Est Pt Level 4 (61190) Complex EM visit Add On G2211 Diagnoses Seropositive rheumatoid arthritis M05.9 Long-term use of hydroxychloroquine Z79.899 Abnormal laboratory test R89.9
[2024-05-13 14:23] VITALS: BP 112/74; PULSE 76; O2SAT 98; BMI 29.7
== END 2024-05-13 15:06 | disposition home or self-care (01) ==
LOC: HO.RHE 13:33
PROVIDERS: PCP Physician Assistant Medical; Visit Provider Student in an Organized Health Care Education/Training Program
DX: M05.79 Rheumatoid arthritis with rheumatoid factor of multiple sites without organ or systems involvement (principal); Z79.899 Other long term (current) drug therapy; R89.9 Unspecified abnormal finding in specimens from other organs, systems and tissues
CPT/HCPCS: 99214; G2211

== ENCOUNTER → 2024-05-13 13:32 | Outpatient (BNVA) | payer MEDICARE, SELFPAY | PROVIDERS: PCP Physician Assistant Medical; Visit Provider Student in an Organized Health Care Education/Training Program | DX: M05.9 Rheumatoid arthritis with rheumatoid factor, unspecified (principal); R89.9 Unspecified abnormal finding in specimens from other organs, systems and tissues; Z79.899 Other long term (current) drug therapy | CPT/HCPCS: 99212 ==

== ENCOUNTER → 2024-06-04 08:39 | Outpatient (REF) | payer MEDICARE, SELFPAY ==
--- NOTE | 2024-06-04 08:41 | CA_ITS ---
Transthoracic Echocardiogram Patient (Last, First, Middle): Kalpana Cameron, Gender: Female Date of : 1955 Age: 68 Procedure Date: 06/04/2024 Procedure Type: Transthoracic Echocardiogram Location: OP Height: 152.4 cm Weight: 68.04 kg BSA: 1.65 m2 Heart Rate: 61 bpm BP: 128 / 72 mmHg Campus Security Officer: SB Referring MD: Luisito Pretty MD Sexual Assault Response Coordinator: Marek Alatorre MD Symptoms: R06.02 - Shortness of breath Study Quality: Adequate ECG Rhythm: Sinus Conclusions: - Essentially normal study Findings Left Ventricle Normal left ventricular size, thickness, and systolic function. The visually estimated ejection fraction is between 55-60%. Spectral Doppler is indicative of a normal filling pattern. Right Ventricle Normal right ventricular cavity size and systolic function. Atria The left atrium is likely dilated. There is no evidence of interatrial shunt. The right atrium is normal in size. Aortic Valve The aortic valve structure and function is likely normal. There is no aortic valve stenosis. There is no aortic valve regurgitation. Mitral Valve Normal mitral valve structure and function. There is trace mitral valve regurgitation. There is no mitral valve stenosis. Pulmonic Valve The pulmonic valve is likely normal. Tricuspid Valve Normal tricuspid valve structure. There is trace tricuspid valve regurgitation. The right ventricular systolic pressure is normal. The right ventricular systolic pressure is 17 mmHg. Normal right atrial pressure. There is no evidence of pulmonary hypertension. Great Vessels All visible segments of the aorta are normal in size. The pulmonary artery was not well visualized. Venous The inferior vena cava is normal in size and collapses greater than 50% with inspiration. Pericardium/Pleural There is no evidence of pericardial effusion. Prior Study Comparison No prior study available for comparison. Measurements 2D Linear Measurements IVSd: 0.73 0.6-0.9/0.6-1.0 cm LVIDd: 4.91 3.9-5.3/4.2-5.9 cm LVIDd Index: 2.98 2.4-3.2/2.2-3.1 cm/m2 LVIDs: 3.92 2.0-3.6 cm LVPWd: 0.58 0.7-1.1 cm LA Diam: 3.60 2.7-3.8/3.0-4.0 cm LAIDs Index: 2.18 1.5-2.3 cm/m2 LV Mass: 126.92 67-162/88-224 g LV Mass Index: 76.92 43-95/49-115 g/m2 LVOT Diam: 2.10 3.0+(-)1.3 cm 2D Systolic Function EF 4C: 54.30 >55% EF 2C: 56.00 >55% EF BiP: 55.10 >55% Mitral Valve MV Pk E: 0.73 MV PK A: 0.57 MV Decel Time: 167.00 E/A: 1.30 E'Lateral: 9.57 E'Medial: 10.70 E/E' Med: 6.90 E/E' Lat: 7.70 PHT: 49.00 MVA PHT: 4.49 Decel Price: 4.38 Aortic Valve AoV Pk Rod: 1.20 AoV Pk Grad: 6.00 SYLVIA: 2.53 LVOT LVOT Pk Rod: 0.98 LVOT Mn Rod: 0.67 LVOT VTI: 0.23 LVOT Pk Grad: 4.00 LVOT Mn Grad: 2.00 LVOT Diam: 2.10 LVOT Area: 3.46 Diastolic Function MV Pk E: 0.73 MV Pk A: 0.57 E/A: 1.30 E'Medial: 10.70 E/E' Med: 6.90 E' Laterial: 9.57 E/E' Lat: 7.70 Right Ventricle TAPSE (mm): 18.40 TVS' Rod: 11.20 Tricuspid Valve TR Pk Rod: 1.89 TR Pk Grad: 14.00 RA Press: 3.00 RVSP: 17.00 Great Vessels Aorta Sinus of Valsalva: 2.90 2.0-3.5 cm Ao Asc: 3.10 2.1-3.4 cm Pulmonary Valve PV Pk Rod: 0.81 Peak PV Grad: 3.00 Updated in Other Vendor System with Status of Final Marek Alatorre MD electronically signed on 06/04/2024 4:20:01 PM with status of Final
== END ==
LOC: HO.CARD 08:39
PROVIDERS: PCP Physician Assistant Medical; Visit Provider Student in an Organized Health Care Education/Training Program
DX: R06.02 Shortness of breath (principal)
CPT/HCPCS: 93306

== ENCOUNTER → 2024-06-04 08:41 | Outpatient (BNV) | payer MEDICARE, SELFPAY | PROVIDERS: PCP Physician Assistant Medical; Visit Provider Internal Medicine Cardiovascular Disease | DX: R06.02 Shortness of breath (principal) | CPT/HCPCS: 93306 ==

== ENCOUNTER → 2024-07-02 11:04 | Outpatient (BNV) | payer MEDICARE, SELFPAY | PROVIDERS: PCP Physician Assistant Medical; Visit Provider Internal Medicine Pulmonary Disease | DX: R06.02 Shortness of breath (principal) | CPT/HCPCS: 94060; 94727; 94729 ==

== ENCOUNTER 2024-07-13 13:35 | Outpatient (AMB) | payer MEDICARE, SELFPAY ==
--- NOTE | 2024-07-13 13:49 | MHC.OFFVIS ---
Vital Signs 07/13/24 13:53 Height 5 ft Weight 156 lb 8.451 oz BMI 30.6 BP 118/62 Blood Pressure Location Rt brachial Position Sitting Pulse 67 Pulse Source Pulse Oximeter Intake Visit Reasons: Overlap syndrome Intake Note: Patient present today for overlap syndrome. Clinical Administrative Coordinator Required: No Accompanied by: Self / Same As Patient Allergies Penicillins Allergy (Verified 07/13/24 14:05) Itching HPI Comments Details: 68-year-old female with with seropositive RA presents for follow-up. She is on hydroxychloroquine 200 mg daily. She states that she has been doing reasonably well overall. She states that she has very few flare-ups. Over the last 2 months, she used the Medrol about 3 times. Last time was last week, she had abrupt onset of left shoulder and left hip pain. This was unrelated to any trauma or overuse. Symptoms rapidly resolved with Medrol 4 mg. She denies any joint swelling. She attributes her flare-ups to eating outside. Denies any fevers, rashes or recent illnesses. Initial history: This is a 68-year-old female who presents for evaluation of multiple joint pain. The condition started about a year ago when she started having will joint pain and stiffness including her shoulders, hands, neck, knees. She went to PT which was helpful, afterwards her symptoms back, she went to another round of physical therapy, this time it was not helpful. She states that she is having pain and stiffness in her shoulders, stiffness in her hands, knees, ankles and feet. Morning stiffness of her hands lasts 1-2 hours. Does not believe she has any joint swelling. She denies any weight change or fever. She has noted a change and increased pigmentation on her PIP is bilaterally more noticeable on the right. She denies any skin rashes otherwise. Was prescribed Celebrex which was helpful, she was prescribed prednisone and it did not help. Tylenol also provide some relief. She denies any history of DVT/PE. She stated that in 1987 she was diagnosed with rheumatic fever and was prescribed penicillin, she was allergic to penicillin and she was switched to another antibiotic which she took for a total of 3 years. She has not had any current rheumatic fever. Her sister has SLE as well as her niece [facility] Medical History Rheumatic fever Papilloma of breast Mixed dyslipidemia Alopecia Anxiety Family History Brother Family history of lupus erythematosus Sister Lupus (systemic lupus erythematosus) Family/Other Family history of lupus erythematosus Mother Esophageal cancer Mother Aneurysm Social History Household Members: Family Alcohol intake: current Alcohol intake frequency: does not drink Patient Tobacco Use Status: Never used Tobacco Current occupational status: employed Female Reproductive History Menstrual Total pregnancies: 1 Number of Living Children: 1 Review of Systems Const Denies fever(s), Denies weight gain and Denies weight loss Musc Denies arthralgias, Denies joint swelling and Denies stiffness Skin/Breast Denies rash Physical Exam Const General: cooperative, healthy appearing and comfortable Nutritional Appearance: overweight Orientation/consciousness: patient oriented x3 Limitations: no limitations HEENT Head: Yes normocephalic and Yes atraumatic Mouth: moist mucous membranes Resp Effort & Inspection: normal respiratory effort and able to speak in complete sentences Auscultation: clear to auscultation bilaterally Cardio Rate: regular rate Rhythm: regular rhythm Skin Other: Thinning hair in the frontal area. No areas of alopecia areata noted General skin exam: no rashes or lesions noted Neuro General: patient oriented x3 Extrem Other: No active synovitis today Normal nailfold capillaroscopy Assessment & Plan Assessment & Plan (1) Seropositive rheumatoid arthritis: Comment: +++RF+++CCP ++Th/To +DsDNA dx 12/2023 HCQ 01/2024 effective Code(s): M05.9 - Rheumatoid arthritis with rheumatoid factor, unspecified Category: Medical Plan: This is a 68-year-old female with seropositive RA who presents for follow-up. Hydroxychloroquine 200 mg daily. Doing very well overall. Has rare flare-ups, uses Medrol 4 mg about once or twice a month. Inflammatory markers are minimally elevated. Continue hydroxychloroquine 300 mg daily. Advised patient to keep a log of her flare-ups & prednisone use and we will continue to monitor her for the need of any additional DMARDs Labs before next visit in 3 months (2) Long-term use of hydroxychloroquine: Code(s): Z79.899 - Other senior living (current) drug therapy Category: Medical Plan: Discussed risk of retinopathy associated with hydroxychloroquine. Advised patient to follow-up regularly with naphthalene operator. She has an appointment in August (3) Abnormal laboratory test: Code(s): R89.9 - Unspecified abnormal finding in specimens from other organs, systems and tissues Category: Medical Plan: In addition to her strong positive rheumatoid factor and anti CCP antibodies, she also has positive Th/To antibody, low titer positive DsDNA by crithidiae (resolved after hydroxychloroquine use) & low titer positive [employer] BLASTING Ab. 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 There is no scleroderma on exam, no Raynaud's, and she has normal nailfold capillaroscopy Given potential overlap with scleroderma I discussed the potential risk of interstitial lung disease and pulmonary arterial hypertension. PFTs and 2D echo were done and were unremarkable Plan I spent 27 minutes reviewing patient's chart, evaluating patient, ordering diagnostic workup, counseling patient and documenting in the chart Orders: Orders C Reactive Protein 3 Months M32.9 - Systemic lupus erythematosus, unspecified Complete Blood Count Auto Diff 3 Months M32.9 - Systemic lupus erythematosus, unspecified Comprehensive Met. Panel 3 Months M32.9 - Systemic lupus erythematosus, unspecified Erythrocyte Sedimentation Rate 3 Months M32.9 - Systemic lupus erythematosus, unspecified Anti DNA DS Antibody 3 Months M32.9 - Systemic lupus erythematosus, unspecified Complement C4 3 Months M32.9 - Systemic lupus erythematosus, unspecified Complement C3 3 Months M32.9 - Systemic lupus erythematosus, unspecified Protein Creatinine Ratio, Ur 3 Months M32.9 - Systemic lupus erythematosus, unspecified UA w Microscopic 3 Months M32.9 - Systemic lupus erythematosus, unspecified Coding Level of Care Code Est Pt Level 4 (95293) Complex EM visit Add On G2211 Diagnoses Seropositive rheumatoid arthritis M05.9 Long-term use of hydroxychloroquine Z79.899 Abnormal laboratory test R89.9
[2024-07-13 13:53] VITALS: BP 118/62; PULSE 67; BMI 30.6
== END 2024-07-13 14:11 | disposition home or self-care (01) ==
PROVIDERS: PCP Physician Assistant Medical; Visit Provider Student in an Organized Health Care Education/Training Program
DX: M05.79 Rheumatoid arthritis with rheumatoid factor of multiple sites without organ or systems involvement (principal); Z79.899 Other long term (current) drug therapy; R89.9 Unspecified abnormal finding in specimens from other organs, systems and tissues
CPT/HCPCS: 99214; G2211

== ENCOUNTER → 2024-07-13 13:35 | Outpatient (BNVA) | payer MEDICARE, SELFPAY | PROVIDERS: PCP Physician Assistant Medical; Visit Provider Student in an Organized Health Care Education/Training Program | DX: M05.9 Rheumatoid arthritis with rheumatoid factor, unspecified (principal); R89.9 Unspecified abnormal finding in specimens from other organs, systems and tissues; Z79.899 Other long term (current) drug therapy | CPT/HCPCS: 99212 ==

== ENCOUNTER 2024-11-12 09:01 | Outpatient (REF) | payer MEDICARE, SELFPAY ==
--- OUTSIDE RECORDS SUMMARY | 2024-11-12 09:32 | XMS_ITS | Clinical Summary ---
Author Organization [facility] Address [address] [place] [address] Care Team Providers Care Inspector Automatic Typewriter Name Role Phone Unavailable Primary Care Provider Unavailabl e Source Comments PLEASE NOTE, if this patient is a minor, it may be UNLAWFUL to discuss sensitive information that is contained in these records (such as FAMILY PLANNING, MENTAL HEALTH or SUBSTANCE ABUSE) with the minor patient's parent or other person without the patient's specific authorization.[facility] Immunizations Immunization Administration Dates Next Due PFIZER COVID VACCINE, PURPLE CAP, 12+ 07/04/2021 Social History Tobacco Use Types Packs/Day Years Used Date Smoking Tobacco: Never Assessed Social Connections Answer Date Recorded Connectedness 0 04/02/2024 Financial Resource Strain Answer Date R ecorded Financial Resource Strain 0 2020 Stress Answer Date Recorded Stress 0 07/04/2021 Physical Activity Answer Date Recorded Physical Activity 0 07/04/2021 Food Insecurity Answer Date Recorded Food 0 04/08/2024 Transportation Needs Answer Date Record ed Transportation 0 07/04/2021 Housing Stability Answer Date Recorded Housing 0 07/04/2021 Safety and Environment Answer Date El rded Safety 0 07/04/2021 Utilities Answer Date Recorded Utilities 0 07/04/2021 Employment Answer Date Recorded Stress 0 04/02/2024 Comments Unknown Sex and Gender Information Value Date Recorded Sex Assigned at Not on file Legal Sex Female 6:38 AM PDT Gender Identity Not on file Sexual Orientation Not on file Plan of Treatment Health Maintenance Due Date Last Done Comments Diabetes Screening 1957 Hepatitis C Screening 1957 Lipid Screening 1957 Tobacco Screening 1957 Hypertension Screening (#1) 1975 Imm-DTaP/Tdap/Td (1 - Tdap) 1976 Breast Cancer Screening (Mammogram) 1997 CT Colonography 2002 Colonoscopy 2002 Colorectal Cancer Screening 2002 FIT/gFOBT 2002 Fecal DNA 2002 Flexible Sigmoidoscopy 2002 Imm-Pneumococcal 65+ (1 of 1 - PCV) 2007 Imm-Zoster, Recombinant (1 of 2) 2007 Bone Density Screening 2022 Falls Prevention 2022 Yvl-[id number] (2 - season) 2024 021 Imm-Influenza (#1) 2024 05/04/2020, 05/31/2019 Alcohol and Drug Screen 07/14/2024 Depression Annual Screen 07/14/2024 Insurance [employer] Member Subscriber Plan / Payer (Ef fective 2020-Present) Name:Kalpana Chung Relation to Subscriber:Self Name:Kalpana Chung Payer ID:[id number] Group ID:Not on file Type:Indemnity Address: [address] [address] [place] [address]
--- OUTSIDE RECORDS SUMMARY | 2024-11-12 09:32 | XMS_ITS | Clinical Summary ---
Author Organization [facility] [address] [facility] Address [address] [place] [address] Phone Care Team Providers Care Telegraph Office Telephone Clerk Name Role Phone Shayla Roblero MD Primary Care Provider Allergies Active Allergy Reactions Criticality Noted Date Comments Penicillins 05/21/2021 Medications acetaminophen (TYLENOL 8 HOUR) 650 mg 8 hr tablet Take 1 tablet (650 mg total) by mouth every 8 (eight) hours if needed. Active alendronate (FOSAMAX) 70 mg tablet Take 1 tablet (70 mg total) by mouth every 7 (seven) days. for 360 days. 12/19/2023 Active calcium citrate-vitamin D3 200 mg-6.25 mcg (250 unit) tablet Take by mouth. Active hydroxychloroqu ine (PLAQUENIL) 200 mg tablet Take 1.5 tablets (300 mg total) by mouth 1 (one) time each day. Active methylPREDNISol one (MEDROL) 4 mg tablet Take 1-2 tablets (4-8 mg total) by mouth 1 (one) time each day if needed. Joint pain 02/26/2024 Active omega-3 (FISH OIL) 360-1,200 mg capsule Take 1 capsule (1,200 mg total) by mouth 3 (three) times a day. Active TURMERIC ORAL Take 1,000 mg by mouth 2 (two) times a day. Active atorvastatin (LIPITOR) 20 mg tablet TAKE 1 TABLET BY MOUTH EVERY DAY 90 tablet 1 08/23/2024 Active pantoprazole (PROTONIX) 20 mg EC tablet TAKE 1 TABLET BY MOUTH EVERY DAY 90 tablet 1 08/23/2024 Active amLODIPine (NORVASC) 5 mg tablet TAKE 1 TABLET BY MOUTH EVERY DAY 90 tablet 1 09/07/2024 Active Active Problems Problem Noted Date Diagnosed Date Seropositive rheumatoid arth ritis ([facility] V24, [facility] V28) 02/25/2024 Osteoporosis 12/17/2023 Overview (04/27/2024): 12/04 bone density Alopecia 06/19/2023 Anxiety 06/19/2023 Cervical radiculopathy 06/19/2023 Mixed hyperlipidemia 06/19/2023 Papilloma of right breast 06/19/2023 Overview (04/27/2024): Diagnosed on 05/2023, on tamoxifen. Primary hypertension 06/19/2023 Thyroid nodule 11/24/2022 Overview (04/27/2024): Last Assessment & Plan: 67-year-old woman with history of incidentally found thyroid nodule on MRI neck few years ago. Unfortunately we did not have her detailed old records. She had an ultrasound in 03/2019 we do not have this report either. She denies having any thyroid biopsies She is having dysphagia, acid reflux, scheduled to have barium swallow tomorrow. No palpable thyroid abnormality on exam today. She is clinically euthyroid, recent TSH is not available. Asked patient to sign medical record release so we could have her records from [facility] to help decide when she is due for ultrasound. Encounters Date Type Department Care Team Description 08/18/2024 Telephone Walk-In [facility] [address] [place] [phone] Anna Hamm NP note 08/16/2024 4:30 PM EST Office Visit Walk-In [facility] [address] [place] [phone] Anna Hamm NP Excessive cerumen in right ear canal (Primary Dx); Upper respiratory tract infection, unspecified type 08/16/2024 Nurse Triage Adult Medicine [address] [phone] Shayla Roblero MD Sore Throat from Last 3 Months Immunizations Name Administration Dates Next Due Influenza trivalent, 0.5mL (Fluad) 65yo and olde r 06/19/2023 Influenza trivalent, 0.5mL, preservative free (Fluarix; FluLaval; Fluzone) ages 6mo and older (Afluria) 3 years and older 05/04/2020 Influenza trivalent, with pr eservative (Fluzone; Afluria) 6mo and older 08/08/2021 Pfizer Covid-19 Bivalent, Or iginal + Ba.1 (Non-[place] Trademark [employer] in [place] Bivalent) 05/30/2022 Bancore A/S SARS-CoV-2 COVID-19, mRNA, LNP-S, preservative free 07/04/2021 Pneumococcal conjugate 20 va lent (Prevnar 20, PCV 20) 2mo and older 07/24/2022 Tdap Tetanus diptheria acell ular pertussis (Boostrix; Adacel) 7yo and older 03/20/2022 Medical History Medical History Date Comments HTN (hypertension) DX:HTN (hyper tension) HLD (hyperlipidemia) DX:HLD (hyp erlipidemia) Thyroid nodule DX:Thyroid nodul e Papilloma of right breast DX:Pap illoma of right breast Anxiety disorder DX:Anxiety diso rder Cervical radiculopathy DX:Cervic al radiculopathy Osteoporosis 12/17/2023 DX:Osteoporosis; COMMENT: 12/04 bone density Seropositive rheumatoid arth ritis ([facility] V24, [facility] V28) DX:Seropositive rheumatoid arthritis ([facility]) Social History Tobacco Use Types Packs/Day Years Used Date Smoking Tobacco: Never Smokeless Tobacco: Never Tobacco Cessation:Counseling Given: Not Answered Alcohol Use Standard Drinks/Week Comments Not Currently 0 (1 standard drink = 0.6 oz pur e alcohol) Comments No Sex and Gender Information Value Date Recorded Sex Assigned at Not on file Legal Sex Female 1:01 PM EST Gender Identity Not on file Sexual Orientation Not on file Obstetrics History Last Filed Vital Signs Vital Sign Reading Time Taken Comments Blood Pressure 122/78 08/16/2024 4:19 PM EST Pulse 74 08/16/2024 4:19 PM EST Temperature 36.5 ??C (97.7 ??F) 08/16/2024 4:19 PM ES T Respiratory Rate 16 06/08/2024 2:51 PM EST Oxygen Saturation 99% 08/16/2024 4:19 PM EST Inhaled Oxygen Concentration - - Weight 69.4 kg (153 lb) 06/08/2024 2:51 PM EST Height 152.4 cm (5') 06/08/2024 2:51 PM EST Body Mass Index 29.88 06/08/2024 2:51 PM EST Plan of Treatment Upcoming Encounters Date Type Department Care Team (Late st Contact Info) Description 12/10/2024 9:00 AM EDT Office Visit Adult Medicine - [place] [address] [place] [phone] Jus Rtuledge PA [address] [place] [address] Health Maintenance Due Date Last Done Comments Breast Cancer Screening 1955 Depression Screening 06/11/2022 Hepatitis C Screening 06/11/2022 Medicare Annual Wellness Visit 06/11/2022 Social Influencers of Health Screening 06/11/2022 Falls Risk Assessment 2022 COVID-19 Vaccine ( season) 2024 01/01/2022, 07/04/2021, 09/14/2020, Additional history exists Zoster Vaccines (2 of 2) 12/23/2024 10/28/2024 Influenza Vaccine (Season Ended) 2025 06/19/2023, 08/08/2021, 05/04/2020, Additional history exists Hypertension/CHF/CAD Annual BMP Blood Test 06/08/2025 06/08/2024, 06/19/2023 Cholesterol Screening (Lipid Panel) 06/19/2028 06/19/2023 Colorectal Cancer Screening: Colonoscopy 08/23/2031 08/23/2021 DTaP,Tdap,and Td Vaccines (2 - Td or Tdap) 03/20/2032 03/20/2022 RSV Immunization Adult Patients (1 - 1-dose 75+ series) 2032 Osteoporosis Screening (Bone Density Screening) 11/20/2033 11/21/2023 Pneumococcal Vaccine: 50+ Years Completed 07/24/2022 HIB Vaccines Aged Out No longer eligi ble based on patient's age to complete this topic HPV Vaccines Aged Out No longer eligi ble based on patient's age to complete this topic Hepatitis A Vaccines Aged Out No long er eligible based on patient's age to complete this topic Hepatitis B Vaccines Aged Out No long er eligible based on patient's age to complete this topic IPV Vaccines Aged Out No longer eligi ble based on patient's age to complete this topic MMR Vaccines Aged Out No longer eligi ble based on patient's age to complete this topic Meningococcal ACWY Vaccine Aged Out N o longer eligible based on patient's age to complete this topic Meningococcal B Vaccine Aged Out No l onger eligible based on patient's age to complete this topic RSV Immunization Patients Under 20 months Aged Out No longer eligible based on patient's age to complete this topic Varicella Vaccines Aged Out No longer eligible based on patient's age to complete this topic Procedures Procedure Name Priority Date/Time Associated Diagnosis Comments POC RAPID [id number], MOLECULAR Routine 08/16/2024 6:11 PM EST Upper respiratory tract infection, unspecified type COMPREHENSIVE METABOLIC PANEL Routine 06/08/2024 3:41 PM EST Primary hypertension Mixed hyperlipidemia AZRA DEXA AXIAL SKELETON Routine 11/21/2023 11:19 AM EDT Encounter for screening for osteoporosis LIPID PANEL Routine 06/19/2023 HM COLONOSCOPY Routine 08/23/2021 from Last 3 Months or Most Recently Relevant to Health Maintenance Results * Poc Rapid [id number], MOLECULAR (08/16/2024 6:11 PM EST) COVID-19/SARS- COV-2 Rapid POC Negative Negative Internal Control Pass Yes Yes Swab Nasopharyngeal structure / Unknown 08/16/2024 6:11 PM EST Anna Hamm NP POINT OF CARE TEST ENTER/EDIT ORDERABLES Final Result * (ABNORMAL) Comprehensive metabolic panel (06/08/2024 3:41 PM EST) Sodium 138 133 - 145 mmol/L LAB CHEMISTRY METHOD 06/08/2024 6:36 PM [facility] Potassium 3.9 3.5 - 5.5 mmol/L LAB CHEMISTRY METHOD 06/08/2024 6:36 PM [facility] Chloride 101 96 - 110 mmol/L LAB CHEMISTRY METHOD 06/08/2024 6:36 PM [facility] CO2 31 21 - 32 mmol/L LAB CHEMISTRY METHOD 06/08/2024 6:36 PM [facility] Anion Gap 6 3 - 11 LAB CHEMISTRY METHOD 06/08/2024 6:36 PM [facility] Glucose 77 70 - 100 mg/dL LAB CHEMISTRY METHOD 06/08/2024 6:36 PM [facility] BUN 9 5 - 25 mg/dL LAB CHEMISTRY METHOD 06/08/2024 6:36 PM [facility] Creatinine 0.49(L) 0.50 - 1.10 mg/dL LAB CHEMISTRY METHOD 06/08/2024 6:36 PM [facility] eGFR 104 >=60 mL/min/1. 73m2 LAB CHEMISTRY METHOD 06/08/2024 6:36 PM [facility] Comment:Calculation based on the??Chronic Kidney Disease Epidemiology Collaboration (CKD-EPI) equation refit??without adjustment for race. BUN/Creatinine Ratio 18.4 LAB CHEMISTRY METHOD 06/08/2024 6:36 PM [facility] Calcium 9.9 8.5 - 10.5 mg/dL LAB CHEMISTRY METHOD 06/08/2024 6:36 PM [facility] AST (SGOT) 16 10 - 42 unit/L LAB CHEMISTRY METHOD 06/08/2024 6:36 PM [facility] ALT (SGPT) 22 10 - 60 unit/L LAB CHEMISTRY METHOD 06/08/2024 6:36 PM EST [facility] Alkaline Phosphatase 89 42 - 121 unit/L LAB CHEMISTRY METHOD 06/08/2024 6:36 PM EST [facility] Total Protein 7.3 6.0 - 8.0 g/dL LAB CHEMISTRY METHOD 06/08/2024 6:36 PM EST [facility] Albumin 3.9 3.2 - 5.0 g/dL LAB CHEMISTRY METHOD 06/08/2024 6:36 PM [facility] Total Bilirubin 0.5 0.0 - 1.4 mg/dL LAB CHEMISTRY METHOD 06/08/2024 6:36 PM [facility] Blood Venous blood specimen / Unknown Venipuncture / Unknown 06/08/2024 3:41 PM EST 06/08/2024 3:41 PM EST Shayla Roblero MD LAB BLOOD ORDERABLES F inal Result [facility] [address] [place] [address], * AZAR DEXA AXIAL SKELETON (11/21/2023 11:19 AM EDT) Anatomical Region Laterality Modality Mammography 11/21/2023 10:3 0 AM EDT Narrative 11/21/2023 11:[address] [facility] Diagnostic Imaging Department [address] [place] [address] Patient: ??BLACK CAMERON ?/Age/Sex: 1955 - - Unit#: ??[id number] ? Location/Status: ??SPDIMAM/REG CLI ? Mnemonic/Ordering Site: ??MAMDEXAAX/SPMAM Ordering Physician: ??BETITO DIEGO Azra Dexa Axial Skeleton - 11/21/23 - 5 Report Status:Signed HISTORY: ??The patient is a 68-year-old postmenopausal female with clinical concern for metabolic bone disease. FINDINGS: ??Dual energy x-ray absorptiometry of the lumbar spine and femurs is performed. The mean bone mineral density at L1-L4 is 0.843 gm/cm2 which is 71% of that of young normals and 85% of that of age matched controls. This yields a T-score of -2.8 and a Z-score of -1.2 which is diagnostic of osteoporosis. The mean bone mineral density of the femurs bilaterally is 0.782 gm/cm2 which is 78% of that of young normals and 92% of that of age matched controls. ??This yields a T-score of -1.8 and a Z-score of -0.6 which is diagnostic of osteopenia. However, the T-score of the right femoral neck is -2.6 and that of the left femoral neck is -2.6 which is diagnostic of osteoporosis. IMPRESSION: 1. Osteoporosis. ??There has been a decrease of 17.9% in bone mineral density in the lumbar spine since the prior examination of 01/02/2016. ??There has been a decrease of 15.5% in bone mineral density in the right femur and a decrease of 12.7% in bone mineral density in the left femur. 2. FRAX analysis yields a 10-year probability of major osteoporotic fracture of 13.2% and a 10-year probability of hip fracture of 3.1%. Code 38465 Dictating Physician: ??HAILE LEIJA MD Electronically Signed by: ??HAILE LEIJA MD Dic Date/Time: ??11/21/23 1116 Sign date/Time: ??11/21/23 1119 Procedure Note Haile Leija MD - 03/01/2024 [facility] Diagnostic Imaging Department [address] [place] [id number] Patient: BASIMBLACK./Age/Sex: 1955 - 68 - F Unit#: [id number] Location/Status: SPDIMAM/REG CLI [facility]em[facility] Ordering Physician: BETITO DIEGO Azra Dexa Axial Skeleton - 11/21/23 - 1107 Report Status:Signed HISTORY: The patient is a 68-year-old postmenopausal female withclinical concern for metabolic bone disease. FINDINGS: Dual energy x-ray absorptiometry of the lumbar spine and femursis performed. The mean bone mineral density at L1-L4 is 0.843 gm/cm2 which is71% of that of young normals and 85% of that of age matched controls. Thisyields a T-score of -2.8 and a Z-score of -1.2 which is diagnostic ofosteoporosis. The mean bone mineral density of the femurs bilaterally is 0.782 gm/ub7mimbf is 78% of that of young normals and 92% of that of age matched controls.This yields a T-score of -1.8 and a Z-score of -0.6 which is diagnostic of osteopenia. However, the T-score of the right femoral neck is -2.6 andthat of the left femoral neck is -2.6 which is diagnostic of osteoporosis. IMPRESSION: 1. Osteoporosis. There has been a decrease of 17.9% in bone mineraldensity in the lumbar spine since the prior examination of 01/02/2016. There has demetrius decrease of 15.5% in bone mineral density in the right femur and adecrease of 12.7% in bone mineral density in the left femur. 2. FRAX analysis yields a 10-year probability of major osteoporoticfracture of 13.2% and a 10-year probability of hip fracture of 3.1%. Code 07611 Dictating Physician: HAILE LEIJA MD Electronically Signed by: HAILE LEIJA MD Dic Date/Time: 11/21/23 1116 Sign date/Time: 11/21/23 1119 Betito ACOSTA IMG BI PROCEDURES Final Result * Lipid panel (06/19/2023) Pathologist [facility] LDL/HDL Ratio 2 0 - 4 Triglycerides 57 0 - 150 mg/dL Cholesterol 157 0 - 200 mg/dL HDL 88 >=40 mg/dL LDL Cholesterol 58 0 - 100 mg/dL Blood Venous blood specimen / Unknown Historical Provider LAB BLOOD ORDERABLES Antionette l Result * Colonoscopy (08/23/2021) [facility] Colonoscopy no interpretation , abstracted Anatomical Region Laterality Modality Other Historical Provider HEALTH MAINTENANCE Final Result from Last 3 Months or Most Recently Relevant to Health Maintenance Insurance MEDICARE ADVANTAGE on file Care Teams Telegraph Office Telephone Clerk Relationship Specialty Start Date End Date Shayla Roblero MD [address] [place] [phone] PCP - General 04/04/23
[2024-11-12 09:35] LABS: MANUAL DIFF FLAG NO
[2024-11-12 10:47] LABS: Basophils Percent Auto 0.5 % (0-2); Eosinophils Absolute Auto 0.2 X10*3/uL (0.0-0.4); Eosinophils Percent Auto 2.7 % (0-4); Hematocrit 38.6 % (37.0-47.0); Hemoglobin 12.8 g/dl (12.0-16.0); Imm Gran Abs Auto 0.02 X10*3/uL (0.00-0.03); Imm Gran Pct Auto 0.4 % (0.0-0.4); Lymphocytes Absolute Auto 2.3 X10*3/uL (1.2-4.9); Lymphocytes Percent Auto 40.4 % (20-40); Mean Corpuscular HGB Conc 33.2 g/dl (31.0-35.0); Mean Corpuscular Hemoglobin 29.2 pg (27.0-33.0); Mean Corpuscular Volume 87.9 fL (80.0-98.0); Mean Platelet Volume 8.9 fL (9.4-12.3); Monocytes Absolute Auto 0.4 X10*3/uL (0.1-1.2); Monocytes Percent Auto 7.2 % (2-11); Neutrophils Absolute Auto 2.7 x10*3/uL (2.0-8.3); Neutrophils Percent Auto 48.8 % (45-73); Platelet Count 309 X10*3/uL (160-400); Red Blood Count 4.39 X10*6/uL (4.20-5.50); Red Cell Distribution Width 13.2 % (11.0-16.0); White Blood Count 5.6 X10*3/uL (4.8-10.8)
[2024-11-12 11:24] LABS: Alanine Aminotransferase 23 U/L (0-31); Albumin Level 4.2 g/dL (3.5-5.0); Alkaline Phosphatase 77 U/L (39-117); Anion Gap 10 (12-20); Aspartate Amino Transferase 28 U/L (5-31); Bilirubin Total 0.7 mg/dL (0.0-1.0); Blood Urea Nitrogen 9 mg/dL (9-16); Calcium 9.1 mg/dL (8.4-10.2); Carbon Dioxide 28 mmol/L (22-29); Chloride 106 mmol/L (96-108); Estimated Glomerular Filt Rate > 60; Glucose Random 86 mg/dL (60-115); Potassium 3.8 mmol/L (3.3-5.1); Sodium 140 mmol/L (135-145); Total Protein 7.4 g/dL (6.5-8.0)
[2024-11-12 11:27] LABS: Erythrocyte Sedimentation Rate 18 MM/HR (0-20)
[2024-11-12 11:47] LABS: Appearance Urine Clear; Color Urine Yellow; Glucose Urine UA Negative (Negative); Leukocyte Esterase Urine Negative (Negative); Nitrite Urine Negative (Negative); PH 7.5 (5.0-9.0); Specific Gravity - Urine <= 1.005 (1.005-1.025); UMIC TRIGGER UA YES; Urine Blood Trace (Negative); Urine Ketones Negative (Negative); Urine Protein Negative (Neg-Trace)
[2024-11-12 11:54] LABS: Bacteria Urine None Seen (None Seen); Hyaline Casts Urine 0-2 /LPF (0-2); RBC Urine 0-2 /HPF (0-2); Squamous Epithelial Cell Urine 0-2 /HPF (0-2); WBC Urine 0-5 /HPF (0-5)
[2024-11-12 12:17] LABS: Creatinine Urine 13.81 mg/dL; Total Protein Urine Random < 7 mg/dL (<12)
[2024-11-15 11:03] LABS: Complement C3 136 mg/dL (83-193)
[2024-11-15 22:13] LABS: Anti DNA DS Antibody 2 IU/mL
== END 2024-11-12 09:02 | disposition home or self-care (01) ==
LOC: HO.LAB 09:01
PROVIDERS: Absent Provider Student in an Organized Health Care Education/Training Program; PCP Family Medicine; Visit Provider Student in an Organized Health Care Education/Training Program
DX: M32.9 Systemic lupus erythematosus, unspecified (principal)
CPT/HCPCS: 36415; 80053; 81001; 82570; 84156; 85025; 85652; 86140; 86160; 86225

== ENCOUNTER 2024-11-17 08:54 | Outpatient (AMB) | payer MEDICARE, SELFPAY ==
--- NOTE | 2024-11-17 09:01 | MHC.OFFVIS ---
Vital Signs 11/17/24 09:06 Height 5 ft Weight 159 lb 13.362 oz BMI 31.2 BP 140/80 H Blood Pressure Location Lt brachial Position Sitting Pulse 66 Pulse Source Pulse Oximeter Pulse Oximetry (%) 98 Oxygen Delivery Method Room Air Intake Visit Reasons: UCTD Intake Note: Patient presents for UCTD follow up. Allergies Penicillins Allergy (Verified 11/17/24 09:05) Itching HPI Comments Details: Patient is a 69-year-old female with hypertension, hyperlipidemia, GERD, osteoporosis and seropositive rheumatoid arthritis/overlap syndrome here today for follow up Interval History: Patient last seen 07/13/[address] Pretty. At that time she was following up for her seropositive rheumatoid arthritis on hydroxychloroquine 300 mg daily. Reported that she was doing reasonably well overall with very few flare-ups. Uses Medrol p.r.n. Currently continues to do well Has intermittent pain which she now takes Tylenol for Rarely she will use medrol Rheumatologic History: +++RF+++CCP ++Th/To +DsDNA dx 12/2023 HCQ 01/2024 effective Initial history: This is a 68-year-old female who presents for evaluation of multiple joint pain. The condition started about a year ago when she started having will joint pain and stiffness including her shoulders, hands, neck, knees. She went to PT which was helpful, afterwards her symptoms back, she went to another round of physical therapy, this time it was not helpful. She states that she is having pain and stiffness in her shoulders, stiffness in her hands, knees, ankles and feet. Morning stiffness of her hands lasts 1-2 hours. Does not believe she has any joint swelling. She denies any weight change or fever. She has noted a change and increased pigmentation on her PIP is bilaterally more noticeable on the right. She denies any skin rashes otherwise. Was prescribed Celebrex which was helpful, she was prescribed prednisone and it did not help. Tylenol also provide some relief. She denies any history of DVT/PE. She stated that in 1987 she was diagnosed with rheumatic fever and was prescribed penicillin, she was allergic to penicillin and she was switched to another antibiotic which she took for a total of 3 years. She has not had any current rheumatic fever. Her sister has SLE as well as her niece In addition to her strong positive rheumatoid factor and anti CCP antibodies, she also has positive Th/To antibody, low titer positive DsDNA by crithidiae (resolved after hydroxychloroquine use) & low titer positive REAL ESTATE INSTRUCTOR Ab. 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 There is no scleroderma on exam, no Raynaud's, and she has normal nailfold capillaroscopy Given potential overlap with scleroderma I discussed the potential risk of interstitial lung disease and pulmonary arterial hypertension. PFTs and 2D echo were done and were unremarkable Current Rheumatology Medication(s): Hydroxychloroquine 300mg daily Medrol 4-8mg daily prn PFSH Medical History Rheumatic fever Papilloma of breast Mixed dyslipidemia Alopecia Anxiety Family History Brother Family history of lupus erythematosus Sister Lupus (systemic lupus erythematosus) Family/Other Family history of lupus erythematosus Mother Esophageal cancer Mother Aneurysm Social History Household Members: Family Alcohol intake: current Alcohol intake frequency: does not drink Patient Tobacco Use Status: Never used Tobacco Current occupational status: employed Review of Systems Const Details: Review of Systems Constitutional: Denies fever, chills, weight loss ENT: Denies vision changes, eye pain or eye redness, dental caries, dry mouth GI: Denies nausea, vomiting, diarrhea, abdominal pain, change in BM Pulm: Denies SOB, ROWLAND, hemoptysis, wheezing Cards: Denies chest pain, palpitations Skin: Denies Raynaud's, rash, nail changes, photosensitivity, WEAVER HAND LOOM: Denies headaches, weakness, paresthesias, recurrent falls MSK: as per HPI All other systems reviewed and are unremarkable except noted above Physical Exam Vital Signs: Last Vital Signs Pulse 66 11/17/24 09:06 BP 140/80 H 11/17/24 09:06 Pulse Ox 98 11/17/24 09:06 Oxygen Delivery Method Room Air 11/17/24 09:06 BMI result Body Mass Index 31.2 Vital signs reviewed Physical Examination CONSTITUITIONAL Patient alert and cooperative. Well appearing and in no apparent painful distress HEENT Conjunctiva and sclera clear. ?Pupils equal round and reactive to light. ?No lymphadenopathy. ? CHEST/RESPIRATORY SYSTEM Normal respiratory effort and able to speak in complete sentences. ?Clear to auscultation bilaterally. ?No crackles, rales, rhonchi, wheezes heard. CARDIAC SYSTEM Regular rate and rhythm. ?S1 and S2 heard no murmurs. ?Radial pulses intact bilaterally MSK Hands: ?Able to make a fist. No synovitis noted to the MCPs, PIPs or DIPs. ?No tenderness to palpation of these joints. Herbeden's nodes Wrists: ?Full range of motion at the wrists without pain. ?No tenderness to palpation or synovitis noted to the wrists. Elbows: Full range of motion without pain. No tenderness, weakness, swelling, increased warmth or erythema. Shoulders: Full range of active range of motion without pain. No tenderness, weakness, swelling, increased warmth or erythema. Knees: ?Full range of motion. ?No tenderness, swelling, increased warmth or erythema.?No effusion or crepitations Ankles: Full range of motion. ?No tenderness, swelling, increased warmth or erythema.? Feet: ?Negative squeeze test. ?No tenderness to palpation or swelling of the MTPs. Tender points:?No tenderness to palpation of the bilateral trapezius, supraspinatus, greater trochanters, anterior costochondral junctions, bilateral gluteal areas, bilateral suboccipital muscle insertions SKIN Skin intact without rashes. Results Reviewed Results Reviewed: Laboratory Tests 11/12/24 09:34 WBC 5.6 RBC 4.39 Hgb 12.8 Hct 38.6 Plt Count 309 ESR 18 Sodium 140 Potassium 3.8 Chloride 106 Carbon Dioxide 28 BUN 9 Creatinine 0.56 AST 28 ALT 23 Alkaline Phosphatase 77 C-Reactive Protein 0.10 Laboratory Tests 11/12/24 09:34 Double Strand DNA Ab 2 Complement C3 136 Complement C4 21 Immunology labs 12/31/23 09:56 Rheumatoid Factor 329.9 H Cycl Citrul Peptide IgG >250 H ZBIGNIEW Screen POSITIVE A ZBIGNIEW Titer 1:320 H PL-12 Antibody 16 H SM/REAL ESTATE INSTRUCTOR IgG Antibody 1.1 POS A Anti-ds DNA Titer (Crith) 1:40 H Anti-ds DNA (Crithidia) Positive A Th/To REAL ESTATE INSTRUCTOR Ab 85 H ECHO 05/2024 Findings Left Ventricle Normal left ventricular size, thickness, and systolic function. The visually estimated ejection fraction is between 55-60%. Spectral Doppler is indicative of a normal filling pattern. Right Ventricle Normal right ventricular cavity size and systolic function. Atria The left atrium is likely dilated. There is no evidence of interatrial shunt. The right atrium is normal in size. Aortic Valve The aortic valve structure and function is likely normal. There is no aortic valve stenosis. There is no aortic valve regurgitation. Mitral Valve Normal mitral valve structure and function. There is trace mitral valve regurgitation. There is no mitral valve stenosis. Pulmonic Valve The pulmonic valve is likely normal. Tricuspid Valve Normal tricuspid valve structure. There is trace tricuspid valve regurgitation. The right ventricular systolic pressure is normal. The right ventricular systolic pressure is 17 mmHg. Normal right atrial pressure. There is no evidence of pulmonary hypertension. Great Vessels All visible segments of the aorta are normal in size. The pulmonary artery was not well visualized. Venous The inferior vena cava is normal in size and collapses greater than 50% with inspiration. Pericardium/Pleural There is no evidence of pericardial effusion. Assessment & Plan Assessment & Plan (1) Seropositive rheumatoid arthritis: Comment: +++RF+++CCP ++Th/To +DsDNA dx 12/2023 HCQ 01/2024 effective Code(s): M05.9 - Rheumatoid arthritis with rheumatoid factor, unspecified Category: Medical Plan: #Seropositive RA/Overlap syndrome Patient is a 69-year-old female with seropositive rheumatoid arthritis and potentially overlap syndrome here today for follow up. Currently in remission on Plaquenil monotherapy. Uses Medrol 4 flares p.r.n.. Plan - Plaquenil 300mg daily - Medrol 4-8mg daily prn - ECHO every 3-5 years to eval for pulm HTN - RTC 6 months - Labs before visit: CBC, CMP, ESR, CRP, C3, C4, dsDNA, UA, UPC (2) Long-term use of hydroxychloroquine: Code(s): Z79.899 - Other residential (current) drug therapy Category: Medical Plan: #Long-term Use of Hydroxychloroquine Discussed with patient the risks and benefits of hydroxychloroquine in managing the rheumatic condition Benefits include: - Reduced pain, reduce mortality, maintenance of remission and reduction of flares Risks include: - GI upset, skin hyperpigmentation, retinal toxicity (especially after more than 5 years of use), myopathy Advised yearly ophthalmology visit Plan I spent 33 minutes reviewing the record and labs, taking a history, examining the patient, discussing the treatment plan, ordering diagnostic work up and documenting in the medical record Coding Level of Care Code Est Pt Level 4 (18967) Complex EM visit Add On G2211 Diagnoses Seropositive rheumatoid arthritis M05.9 Long-term use of hydroxychloroquine Z79.899
[2024-11-17 09:06] VITALS: BP 140/80; PULSE 66; O2SAT 98; BMI 31.2
--- OUTSIDE RECORDS SUMMARY | 2024-11-17 09:21 | XMS_ITS | Clinical Summary ---
Author Organization [facility] Address [address] [place] [address] Care Team Providers Care Caramel Candy Maker Name Role Phone Unavailable Primary Care Provider [...] Bone Density Screening 2022 Falls Prevention 2022 [id number] (2 - season) 2024 021 Imm-Influenza (#1) 2024 05/04/2020, 05/31/2019 Alcohol and Drug Screen 07/14/2024 Depression Annual Screen 07/14/2024 Insurance [employer] Member Subscriber Plan / Payer (Ef fective 2020-Present) Name:Kalpana Chung Relation to Subscriber:Self Name:Kalpana Chung Payer ID:[id number] Group ID:Not on file Type:Indemnity Address: [address] [address] [place] [address]
--- OUTSIDE RECORDS SUMMARY | 2024-11-17 09:21 | XMS_ITS | Clinical Summary ---
Author Organization [facility] [address] [facility] lding Address [address] [place] [address] Phone Care Team Providers Care Blanket Folder Name Role Phone Shayla Roblero MD Primary [...] Date Diagnosed Date Seropositive rheumatoid arth ritis ([facility] V24, [facility] V28) 02/25/2024 Osteoporosis 12/17/2023 Overview (04/27/2024): 12/04 [...] so we could have her records from [facility] to help decide when she is due for ultrasound. Immunizations Name Administration Dates Next Due Influenza trivalent, 0.5mL (Fluad) 65yo and olde r 06/19/2023 Influenza trivalent, 0.5mL, preservative free (Fluarix; FluLaval; Fluzone) ages 6mo and older (Afluria) 3 years and older 05/04/2020 Influenza trivalent, with pr eservative (Fluzone; Afluria) 6mo and older 08/08/2021 Pfizer Covid-19 Bivalent, Or iginal + Ba.1 (Non-US Trademark COMIRNATY Bivalent) 05/30/2022 T[employer]um[employer] SARS-CoV-2 COVID-19, mRNA, LNP-S, preservative free 07/04/2021 [...] 12/04 bone density Seropositive rheumatoid arth ritis (CMS/HCC V24, CMS/[facility] V28) DX:Seropositive rheumatoid arthritis ([facility]) Social History Tobacco Use Types Packs/Day Years [...] 9:00 AM EDT Office Visit Adult Medicine [address] [id number] Jus Rutledge PA [facility] [place] [address] Health Maintenance Due Date Last Done Comments [...] Procedure Name Priority Date/Time Associated Diagnosis Comments EXTERNAL CLINICAL LAB 11/15/2024 COMPREHENSIVE METABOLIC PANEL Routine 06/08/2024 3:41 PM EST Primary hypertension Mixed hyperlipidemia [facility] DEXA AXIAL SKELETON Routine 11/21/2023 11:19 AM EDT Encounter for screening for osteoporosis LIPID PANEL Routine 06/19/2023 HM COLONOSCOPY Routine 08/23/2021 from Last 3 Months or Most Recently Relevant to Health Maintenance Results * External clinical lab (11/15/2024) Provider [facility] LAB BLOOD ORDERABLES Fin al Result * (ABNORMAL) Comprehensive metabolic panel (06/08/2024 3:41 PM EST) Sodium 138 133 - 145 mmol/L LAB CHEMISTRY METHOD 06/08/2024 6:36 PM [facility] Potassium 3.9 3.5 - 5.5 mmol/L LAB CHEMISTRY METHOD 06/08/2024 6:36 PM [facility] Chloride 101 96 - 110 mmol/L LAB CHEMISTRY METHOD 06/08/2024 6:36 PM [facility] CO2 31 21 - 32 mmol/L LAB CHEMISTRY METHOD 06/08/2024 6:36 PM [facility] Anion Gap 6 3 - 11 LAB CHEMISTRY METHOD 06/08/2024 6:36 PM [facility] Glucose 77 70 - 100 mg/dL LAB CHEMISTRY METHOD 06/08/2024 6:36 PM [facility] BUN 9 5 - 25 mg/dL LAB CHEMISTRY METHOD 06/08/2024 6:36 PM [facility] Creatinine 0.49(L) 0.50 - 1.10 mg/dL LAB CHEMISTRY METHOD 06/08/2024 6:36 PM [facility] eGFR 104 >=60 mL/min/1. 73m2 LAB CHEMISTRY METHOD 06/08/2024 6:36 PM [facility] Comment:Calculation based on the??Chronic Kidney Disease Epidemiology Collaboration (CKD-EPI) equation refit??without adjustment for race. BUN/Creatinine Ratio 18.4 LAB CHEMISTRY METHOD 06/08/2024 6:36 PM [facility] Calcium 9.9 8.5 - 10.5 mg/dL LAB CHEMISTRY METHOD 06/08/2024 6:36 PM [facility] AST (SGOT) 16 10 - 42 unit/L LAB CHEMISTRY METHOD 06/08/2024 6:36 PM [facility] ALT (SGPT) 22 10 - 60 unit/L LAB CHEMISTRY METHOD 06/08/2024 6:36 PM [facility] Alkaline Phosphatase 89 42 - 121 unit/L LAB CHEMISTRY METHOD 06/08/2024 6:36 PM [facility] Total Protein 7.3 6.0 - 8.0 g/dL LAB CHEMISTRY METHOD 06/08/2024 6:36 PM [facility] Albumin 3.9 3.2 - 5.0 g/dL LAB CHEMISTRY METHOD 06/08/2024 6:36 PM [facility] Total Bilirubin 0.5 0.0 - 1.4 mg/dL LAB CHEMISTRY METHOD 06/08/2024 6:36 PM [facility] Blood Venous blood specimen / Unknown Venipuncture / Unknown 06/08/2024 3:41 PM EST 06/08/2024 3:41 PM EST us Shayla Roblero MD LAB BLOOD ORDERABLES F inal Result [facility] [address] [place] [address], * AZRA DEXA AXIAL SKELETON (11/21/2023 11:19 AM EDT) Anatomical Region Laterality Modality Mammography 11/21/2023 10:3 0 AM EDT Narrative 11/21/2023 11:19 AM EDT [facility] Diagnostic Imaging Department [address] [place] [address] Patient: ??SD CAMERONA ?/Age/Sex: 1955 - 68 - F Unit#: ??[id number] ? Location/Status: ??SPDIMAM/REG CLI ? Mnemonic/Ordering Site: ??MAMDEXAAX/SPMAM Ordering Physician: ??BETITO DIEGO [facility] Dexa Axial Skeleton - 11/21/23 9 Report Status:Signed HISTORY: ??The patient is a [...] probability of hip fracture of 3.1%. Code 50155 Dictating Physician: ??HAILE LEIJA MD Electronically Signed by: ??HAILE LEIJA MD Dic Date/Time: ??11/21/23 1116 Sign date/Time: ??11/21/23 1119 Procedure Note Haile Leija MD - 03/01/2024 [facility] Diagnostic Imaging Department [address] [place], [place] [id number] Patient: CAMERONBLACK D.O.B./Age/Sex: 1955 - 68 - F Unit#: [id number] Location/Status: [facility]/REG CLI Mnemonic[facility] Ordering Physician: BETITO DIEGO [facility] Dexa Axial Skeleton - 11/21/23 - 1105 Report Status:Signed HISTORY: The patient is a [...] density of the femurs bilaterally is 0.782 gm/mo0rfvyz is 78% of that of young normals [...] probability of hip fracture of 3.1%. Code 13860 Dictating Physician: HAILE LEIJA MD Electronically Signed by: HAILE LEIJA MD Dic Date/Time: 11/21/23 1116 Sign date/Time: 11/21/23 1119 Betito ACOSTA [facility] BI PROCEDURES Final Result * Lipid panel (06/19/2023) LDL/HDL Ratio 2 0 - 4 Triglycerides 57 0 - 150 mg/dL Cholesterol 157 0 - 200 mg/dL HDL 88 >=40 mg/dL LDL Cholesterol 58 0 - 100 mg/dL Blood Venous blood specimen / Unknown Historical Provider LAB BLOOD ORDERABLES Antionette l Result * Colonoscopy (08/23/2021) Colonoscopy no interpretation , abstracted Anatomical Region Laterality Modality Other Historical Provider HEALTH MAINTENANCE Final Result from Last 3 Months or Most Recently Relevant to Health Maintenance Insurance on file Care Teams Blanket Folder Relationship Specialty Start Date End Date Shayla Roblero MD [address] [place] [id number] PCP - General 04/04/23
== END 2024-11-17 09:38 | disposition home or self-care (01) ==
LOC: HO.RHE 08:55
PROVIDERS: PCP Physician Assistant Medical; Visit Provider Student in an Organized Health Care Education/Training Program
DX: M05.79 Rheumatoid arthritis with rheumatoid factor of multiple sites without organ or systems involvement (principal); Z79.899 Other long term (current) drug therapy
CPT/HCPCS: 99214; G2211

== ENCOUNTER → 2024-11-17 08:54 | Outpatient (BNVA) | payer MEDICARE, SELFPAY | PROVIDERS: PCP Physician Assistant Medical; Visit Provider Student in an Organized Health Care Education/Training Program | DX: M05.9 Rheumatoid arthritis with rheumatoid factor, unspecified (principal); Z79.899 Other long term (current) drug therapy | CPT/HCPCS: 99212 ==

== ENCOUNTER 2025-05-12 11:00 | Outpatient (REF) | payer MEDICARE, SELFPAY ==
[2025-05-12 11:15] LABS: MANUAL DIFF FLAG NO
[2025-05-12 12:07] LABS: Hematocrit 40.0 % (37.0-47.0); Hemoglobin 13.2 g/dl (12.0-16.0); Imm Gran Abs Auto 0.01 X10*3/uL (0.00-0.03); Imm Gran Pct Auto 0.1 % (0.0-0.4); Lymphocytes Absolute Auto 2.8 X10*3/uL (1.2-4.9); Mean Corpuscular HGB Conc 33.0 g/dl (31.0-35.0); Mean Corpuscular Hemoglobin 29.3 pg (27.0-33.0); Mean Corpuscular Volume 88.7 fL (80.0-98.0); NRBC Abs Auto 0.000 X10*3/uL (0.0-0.012); NRBC Pct Auto 0.0 /100WBC (0.0-0.2); Platelet Count 328 X10*3/uL (160-400); Red Blood Count 4.51 X10*6/uL (4.20-5.50); White Blood Count 7.1 X10*3/uL (4.8-10.8)
[2025-05-12 12:34] LABS: Appearance Urine Clear; Glucose Urine UA Negative (Negative); PH 7.5 (5.0-9.0); Specific Gravity - Urine <= 1.005 (1.005-1.025); UMIC TRIGGER UA YES
[2025-05-12 12:34] LABS: Alanine Aminotransferase 21 U/L (0-31); Albumin Level 4.5 g/dL (3.5-5.0); Alkaline Phosphatase 90 U/L (39-117); Anion Gap 11 (12-20); Aspartate Amino Transferase 22 U/L (5-31); Blood Urea Nitrogen 8 mg/dL (9-16); Calcium 9.6 mg/dL (8.4-10.2); Carbon Dioxide 31 mmol/L (22-29); Chloride 104 mmol/L (96-108); Estimated Glomerular Filt Rate > 60; Potassium 3.7 mmol/L (3.3-5.1); Sodium 142 mmol/L (135-145); Total Protein 7.6 g/dL (6.5-8.0)
[2025-05-12 13:07] LABS: Total Protein Urine Random < 7 mg/dL (<12)
--- OUTSIDE RECORDS SUMMARY | 2025-05-12 13:48 | XMS_ITS | Clinical Summary ---
Author Organization [facility] [address] [facility] lding Address [address] [place] [address] Phone Care Team Providers Care Architectural Design Professor Name Role Phone Shayla Roblero MD Primary Care Provider Allergies Active Allergy Reactions Criticality Noted Date Comments Penicillins 05/21/2021 Medications acetaminophen (TYLENOL 8 HOUR) 650 mg 8 hr tablet Take 1 tablet (650 mg total) by mouth every 8 (eight) hours if needed. Active calcium citrate-vitami n D3 200 mg-6.25 mcg (250 unit) tablet Take by mouth. Active hydroxychloroq uine (PLAQUENIL) 200 mg tablet Take 1.5 tablets (300 mg total) by mouth 1 (one) time each day. Active methylPREDNISo lone (MEDROL) 4 mg tablet Take 1-2 tablets (4-8 mg total) by mouth 1 (one) time each day if needed. Joint pain 4 Active omega-3 (FISH OIL) 360-1,200 mg capsule Take 1 capsule (1,200 mg total) by mouth 3 (three) times a day. Active TURMERIC ORAL Take 1,000 mg by mouth 2 (two) times a day. Active cyanocobalamin (VITAMIN B-12) 1,000 mcg tablet Take 1 tablet (1,000 mcg total) by mouth 1 (one) time each day. Active flintstones complete (Multi-Vitamin s with Iron) chewable tablet Chew 1 tablet 1 (one) time each day. Active atorvastatin (LIPITOR) 20 mg tablet TAKE 1 TABLET BY MOUTH EVERY DAY 90 tablet 1 5 Active pantoprazole (PROTONIX) 20 mg EC tablet TAKE 1 TABLET BY MOUTH EVERY DAY 90 tablet 1 5 Active amLODIPine (NORVASC) 5 mg tablet TAKE 1 TABLET BY MOUTH EVERY DAY 90 tablet 1 5 Active alendronate (FOSAMAX) 70 mg tablet TAKE 1 TABLET BY MOUTH EVERY 7 DAYS. TAKE IN THE MORNING WITH A FULL GLASS OF WATER, ON AN EMPTY STOMACH, AND DO NOT TAKE ANYTHING ELSE BY MOUTH OR LIE DOWN FOR THE NEXT 30 MIN. 12 tablet 5 Active alendronate (FOSAMAX) 70 mg tablet Take 1 tablet (70 mg total) by mouth every 7 (seven) days. Take in the morning with a full glass of water, on an empty stomach, and do not take anything else by mouth or lie down for the next 30 min. 12 tablet 5 025 Discontinued Active Problems Problem Noted Date Diagnosed Date Seropositive rheumatoid arth ritis ([facility] V24, [facility] V28) 02/25/2024 Osteoporosis 12/17/2023 Overview [...] so we could have her records from [facility] to help decide when she is due for ultrasound. Immunizations Immunization Administration Dates Next Due Influenza Quadrivalent, 0.5m l, preservative free (Fluarix; FluLaval; Fluzone) ages 6mo and older (Afluria) 3yo and older 05/04/2020 Influenza Whole 05/04/2020 Influenza trivalent, 0.5mL (Fluad) 65yo and olde r 06/19/2023 Influenza trivalent, 0.5mL ( Fluzone High-dose) 65yo and older 06/19/2023 Influenza trivalent, 0.5mL, preservative free (Fluarix; FluLaval; Fluzone) ages 6mo and older (Afluria) 3 years and older 05/04/2020 Influenza trivalent, with pr eservative (Fluzone; Afluria) 6mo and older 08/08/2021,05/31/2019 Pfizer (ages 12 & older) Bivalent, COVID-19 05/14 [employer] Covid-19 Bivalent, Or iginal + Ba.1 (Non-US Trademark [employer]IR[employer] Bivalent) 05/30/2022 [employer] [facility] SARS-CoV-2 COVID-19, mRNA, LNP-S, preservative free 07/04/2021 Pneumococcal conjugate 20 va lent (Prevnar 20, PCV 20) 2mo and older 07/24/2022 SARS-COV-2 (COVID-19) Vaccine, Unspecified 05/30 Tdap Tetanus diptheria acell ular pertussis (Boostrix; Adacel) 7yo and older 03/20/2022 Zoster recombinant (Shingrix) 19yo and older Medical History Medical History Date Comments HTN (hypertension) DX:HTN (hyper tension) HLD (hyperlipidemia) DX:HLD (hyp erlipidemia) Thyroid nodule DX:Thyroid nodul e Papilloma of right breast DX:Pap illoma of right breast Anxiety disorder DX:Anxiety diso rder Cervical radiculopathy DX:Cervic al radiculopathy Osteoporosis 12/17/2023 DX:Osteoporosis; COMMENT: 12/04 bone density Seropositive rheumatoid arth ritis (CMS/HCC V24, CMS/HCC V28) DX:Seropositive rheumatoid arthritis (HCC) Social History Tobacco Use Types Packs/Day Years Used Date Smoking Tobacco: Never Smokeless Tobacco: Never Tobacco Cessation:Counseling Given: Not Answered Alcohol Use Standard Drinks/Week Comments Not Currently 0 (1 standard drink = 0.6 oz pur e alcohol) Comments No Sex and Gender Information Value Date Recorded Sex Assigned at Female 01/07/2025 11:57 AM EDT Legal Sex Female 1:01 PM EST Gender Identity Female 01/07/2025 11:57 AM EDT Sexual Orientation Straight 01/07/2025 11 :57 AM EDT Obstetrics History Last Filed Vital Signs Vital Sign Reading Time Taken Comments Blood Pressure 134/65 12/10/2024 9:04 AM EDT Pulse 65 12/10/2024 9:04 AM EDT Temperature 36.3 C (97.4 F) 12/10/2024 9:04 AM EDT Respiratory Rate 16 06/08/2024 2:51 PM EST Oxygen Saturation 99% 08/16/2024 4:19 PM EST Inhaled Oxygen Concentration - - Weight 74.4 kg (164 lb) 12/10/2024 9:04 AM EDT Height 152.4 cm (5') 12/10/2024 9:04 AM EDT Body Mass Index 32.03 12/10/2024 9:04 AM EDT Plan of Treatment Upcoming Encounters Date Type Department Care Team (Late st Contact Info) Description 06/29/2025 2:30 PM EST Office Visit Adult Medicine [address] [address] Jus Rutledge, PA [address] [place] [phone] 11/25/2025 9:00 AM EDT Appointment [facility] Bone Density [address] [place] [address] Health Maintenance Due Date Last Done Comments Breast Cancer Screening 1955 Medicare Annual Wellness Visit 06/11/2022 Social Influencers of Health Screening 06/11/2022 Falls Risk Assessment 2022 Depression Screening 07/14/2024 COVID-19 Vaccine ( season) 2025 05/30/2022, 05/30/2022, 01/01/2022, Additional history exists Influenza Vaccine (#1) 2025 , 06/19/2023, 08/08/2021, Additional history exists Hypertension/CHF/CAD Annual BMP Blood Test 12/10/2025 12/10/2024, 06/08/2024, 06/19/2023 Cholesterol Screening (Lipid Panel) 12/10/2029 12/10/2024, 06/19/2023 Colorectal Cancer Screening: Colonoscopy 08/23/2031 08/23/2021 DTaP,Tdap,and Td Vaccines (2 - Td or Tdap) 03/20/2032 03/20/2022 RSV Immunization Adult Patients (1 - 1-dose 75+ series) 2032 Osteoporosis Screening (Bone Density Screening) 11/20/2033 11/21/2023 Pneumococcal Vaccine: 50+ Years Completed 07/24/2022 Hepatitis C Screening Completed 12/10/2024 Zoster Vaccines Completed 03/04/2025, 10/28/2024 HIB Vaccines Aged Out No longer eligi [...] Procedure Name Priority Date/Time Associated Diagnosis Comments HEPATITIS C ANTIBODY Routine 12/10/2024 9:52 AM EDT Adult general medical examination COMPREHENSIVE METABOLIC PANEL Routine 12/10/2024 9:52 AM EDT Adult general medical examination Primary hypertension Mixed hyperlipidemia LIPID PANEL WITH REFLEX TO DIRECT LDL Routine 12/10/2024 9:52 AM EDT Adult general medical examination Mixed hyperlipidemia [facility] DEXA AXIAL SKELETON Routine 11/21/2023 11:19 AM EDT Encounter for screening for osteoporosis COLONOSCOPY Routine 08/23/2021 from Last 3 Months or Most Recently Relevant to Health Maintenance Results * Hepatitis C antibody (12/10/2024 9:52 AM EDT) [facility] Hepatitis C Antibody Negative Negative LAB CHEMISTRY METHOD 12/10/2024 4:31 PM EDT [facility] Blood Venous blood specimen / Unknown Venipuncture / Unknown 12/10/2024 9:52 AM EDT 12/10/2024 9:52 AM EDT Jus ACOSTA LAB BLOOD ORDERABLES Final Re sult [facility] [address] [place] [address], [place] [phone] * Lipid panel with reflex to direct LDL (12/10/2024 9:52 AM EDT) [facility] Cholesterol 159 0 - 200 mg/dL LAB CHEMISTRY METHOD 12/10/2024 3:21 PM EDT [facility] Triglycerides 82 0 - 150 mg/dL LAB CHEMISTRY METHOD 12/10/2024 3:21 PM EDT [facility] HDL 79 >=40 mg/dL LAB CHEMISTRY METHOD 12/10/2024 3:21 PM EDT [facility] LDL Calculated 64 0 - 100 mg/dL LAB CHEMISTRY METHOD 12/10/2024 3:21 PM EDT [facility] VLDL Cholesterol Jose 16.4 mg/dL LAB CHEMISTRY METHOD 12/10/2024 3:21 PM EDT [facility] Non HDL Chol. (LDL+VLDL) 80 <145 mg/dL LAB CHEMISTRY METHOD 12/10/2024 3:21 PM [facility] Chol/HDL Ratio 2.0 0.0 - 4.4 LAB CHEMISTRY METHOD 12/10/2024 3:21 PM [facility] Blood Venous blood specimen / Unknown Venipuncture / Unknown 12/10/2024 9:52 AM EDT 12/10/2024 9:52 AM EDT us Jus ACOSTA LAB BLOOD ORDERABLES Final Re sult [facility] [address] [place] [address], [place] [phone] * Comprehensive metabolic panel (12/10/2024 9:52 AM EDT) Sodium 140 133 - 145 mmol/L LAB CHEMISTRY METHOD 12/10/2024 3:21 PM [facility] Potassium 4.2 3.5 - 5.5 mmol/L LAB CHEMISTRY METHOD 12/10/2024 3:21 PM [facility] Chloride 105 96 - 110 mmol/L LAB CHEMISTRY METHOD 12/10/2024 3:21 PM [facility] CO2 31 21 - 32 mmol/L LAB CHEMISTRY METHOD 12/10/2024 3:21 PM [facility] Anion Gap 4 3 - 11 LAB CHEMISTRY METHOD 12/10/2024 3:21 PM [facility] Glucose 89 70 - 100 mg/dL LAB CHEMISTRY METHOD 12/10/2024 3:21 PM [facility] BUN 9 5 - 25 mg/dL LAB CHEMISTRY METHOD 12/10/2024 3:21 PM [facility] Creatinine 0.54 0.50 - 1.10 mg/dL LAB CHEMISTRY METHOD 12/10/2024 3:21 PM [facility] eGFR 101 >=60 mL/min/1. 73m2 LAB CHEMISTRY METHOD 12/10/2024 3:21 PM EDT [facility] Comment:Calculation based on the Chronic Kidney Disease Epidemiology Collaboration (CKD-EPI) equation refit without adjustment for race. BUN/Creatinine Ratio 16.7 LAB CHEMISTRY METHOD 12/10/2024 3:21 PM EDT [facility] Calcium 9.2 8.5 - 10.5 mg/dL LAB CHEMISTRY METHOD 12/10/2024 3:21 PM EDT [facility] AST (SGOT) 21 10 - 42 unit/L LAB CHEMISTRY METHOD 12/10/2024 3:21 PM [facility] ALT (SGPT) 29 10 - 60 unit/L LAB CHEMISTRY METHOD 12/10/2024 3:21 PM [facility] Alkaline Phosphatase 93 42 - 121 unit/L LAB CHEMISTRY METHOD 12/10/2024 3:21 PM EDT [facility] Total Protein 7.7 6.0 - 8.0 g/dL LAB CHEMISTRY METHOD 12/10/2024 3:21 PM [facility] Albumin 3.9 3.2 - 5.0 g/dL LAB CHEMISTRY METHOD 12/10/2024 3:21 PM [facility] Total Bilirubin 0.6 0.0 - 1.4 mg/dL LAB CHEMISTRY METHOD 12/10/2024 3:21 PM EDT [facility] Blood Venous blood specimen / Unknown Venipuncture / Unknown 12/10/2024 9:52 AM EDT 12/10/2024 9:52 AM EDT us Jus ACOSTA LAB BLOOD ORDERABLES Final Re sult [facility] [address] [place] [address], * [facility] DEXA AXIAL SKELETON (11/21/2023 11:19 AM EDT) Anatomical Region Laterality Modality Mammography 11/21/2023 10:3 0 AM EDT Narrative 11/21/2023 11:19 AM EDT [facility] Diagnostic Imaging Department [address] [place] [id number] Patient: CAMERONBLACK D.O.B./Age/Sex: 1955 - 68 - F Unit#: [id number] Location/Status: SPDIMAM/REG CLI [facility] Ordering Physician: BETITO DIEGO Azra Dexa Axial Skeleton - 11/21/23 - 1105 Report Status:Signed HISTORY: The patient is a 68-year-old postmenopausal female with clinical concern for metabolic bone disease. FINDINGS: Dual [...] 92% of that of age matched controls. This yields a T-score of -1.8 and a [...] the prior examination of 01/02/2016. There has been a decrease of 15.5% in bone mineral density in the right femur and a decrease of 12.7% in bone mineral density in the left femur. 2. FRAX analysis yields a 10-year probability of major osteoporotic fracture of 13.2% and a 10-year probability of hip fracture of 3.1%. Code 54425 Dictating Physician: HAILE LEIJA MD Electronically Signed by: HAILE LEIJA MD Dic Date/Time: 11/21/23 1116 Sign date/Time: 11/21/23 111 Procedure Note Haile Leija MD - 03/01/2024 [facility] Diagnostic Imaging Department [address] [place] [address] Patient: BLACK CAMERON /Age/Sex: 1955 - 68 - F Unit#: [id number] Location/Status: [facility] Mnemonic/Ordering [facility] Ordering Physician: BETITO DIEGO Azra [...] density of the femurs bilaterally is 0.782 gm/dk7dubty is 78% of that of young normals [...] probability of hip fracture of 3.1%. Code 02012 Dictating Physician: HAILE LEIJA MD Electronically Signed by: HAILE LEIJA MD Dic Date/Time: 11/21/23 1116 Sign date/Time: 11/21/23 1119 Betito ACOSTA [facility] BI PROCEDURES Final Result * Colonoscopy (08/23/2021) Colonoscopy no interpretation , abstracted Anatomical Region Laterality Modality Other [facility] Provider HEALTH MAINTENANCE Final Result from Last 3 Months or Most Recently Relevant to Health Maintenance Insurance [facility] MEDICARE ADVANTAGE on file Care Teams Architectural Design Professor Relationship Specialty Start Date End Date Shayla Roblero MD [address] [place] [id number] PCP - General 04/04/23
== END 2025-05-12 11:01 | disposition home or self-care (01) ==
LOC: HO.LAB 11:00
PROVIDERS: PCP Family Medicine; Visit Provider Student in an Organized Health Care Education/Training Program
DX: M32.9 Systemic lupus erythematosus, unspecified (principal); Z79.899 Other long term (current) drug therapy
CPT/HCPCS: 36415; 80053; 81001; 82570; 84156; 85025; 85652; 86140; 86160; 86225

== ENCOUNTER 2025-05-20 08:34 | Outpatient (AMB) | payer MEDICARE, SELFPAY ==
--- NOTE | 2025-05-20 08:37 | MHC.OFFVIS ---
Vital Signs 05/20/25 08:46 Height 5 ft Weight 168 lb 8 oz BMI 32.9 BP 115/72 Blood Pressure Location Lt brachial Position Sitting Pulse 67 Pulse Source Pulse Oximeter Pulse Oximetry (%) 98 Oxygen Delivery Method Room Air Intake Visit Reasons: f/u RA/overlap syndrome Intake Note: Patient presents for RA/overlap syndrome follow up. Allergies Penicillins Allergy (Verified 05/20/25 08:44) Itching Medication List - Last Reconciled 05/20/25 by Brittany Garcia MD acetaminophen 1,000 mg PO Q6H PRN alendronate 70 mg PO QWEEK amlodipine 5 mg PO DAILY atorvastatin 20 mg PO celecoxib mg PO hydroxychloroquine 300 mg (1.5 x 200 mg) PO DAILY ibuprofen mg PO mecobalamin (vitamin B12) 1,000 mcg sublingual DAILY methylprednisolone 4 - 8 mg (1 - 2 x 4 mg) PO DAILY PRN pantoprazole 20 mg PO DAILY HPI Comments Details: Patient is a 69-year-old female with hypertension, hyperlipidemia, GERD, osteoporosis and seropositive rheumatoid arthritis/overlap syndrome here today for follow up Interval History: Patient last seen 11/17/24 with me - On Hydroxychloroquine 300mg daily, medrol prn - Currently continues to do well - Has intermittent pain which she now takes Tylenol for - Rarely she will use medrol Today - On Hydroxychloroquine 300mg daily, medrol prn - Noted in the last month she has had pain in her DIPs, MCPs - Also neck down to the left hand had some pain - No muscle weakness Rheumatologic History: +++RF+++CCP ++Th/To +DsDNA dx 12/2023 HCQ 01/2024 effective Initial history: This is a 68-year-old female who presents for evaluation of multiple joint pain. The condition started about a year ago when she started having will joint pain and stiffness including her shoulders, hands, neck, knees. She went to PT which was helpful, afterwards her symptoms back, she went to another round of physical therapy, this time it was not helpful. She states that she is having pain and stiffness in her shoulders, stiffness in her hands, knees, ankles and feet. Morning stiffness of her hands lasts 1-2 hours. Does not believe she has any joint swelling. She denies any weight change or fever. She has noted a change and increased pigmentation on her PIP is bilaterally more noticeable on the right. She denies any skin rashes otherwise. Was prescribed Celebrex which was helpful, she was prescribed prednisone and it did not help. Tylenol also provide some relief. She denies any history of DVT/PE. She stated that in 1987 she was diagnosed with rheumatic fever and was prescribed penicillin, she was allergic to penicillin and she was switched to another antibiotic which she took for a total of 3 years. She has not had any current rheumatic fever. 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 There is no scleroderma on exam, no Raynaud's, and she has normal nailfold capillaroscopy Given potential overlap with scleroderma I discussed the potential risk of interstitial lung disease and pulmonary arterial hypertension. PFTs and 2D echo were done and were unremarkable Current Rheumatology Medication(s): Hydroxychloroquine 300mg daily Medrol 4-8mg daily prn PFSH Medical History Rheumatic fever Papilloma of breast Mixed dyslipidemia Alopecia Anxiety Family History Brother Family history of lupus erythematosus Sister Lupus (systemic lupus erythematosus) Family/Other Family history of lupus erythematosus Mother Esophageal cancer Mother Aneurysm Social History Household Members: Family Alcohol intake: current Alcohol intake frequency: does not drink Patient Tobacco Use Status: Never used Tobacco Current occupational status: employed Review of Systems Narrative Review of Systems Constitutional: Denies fever, chills, weight loss ENT: Denies vision changes, eye pain or eye redness, dental caries, dry mouth GI: Denies nausea, vomiting, diarrhea, abdominal pain, change in BM Pulm: Denies SOB, [place], hemoptysis, wheezing Cards: Denies chest pain, palpitations Skin: Denies Raynaud's, rash, nail changes, photosensitivity, 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 Well appearing and in no apparent painful distress MSK Hands Right Hand: Able to make a fist. No swelling or tenderness to palpation of the MCPs, PIPs or DIPs. Left Hand: Able to make a fist. No swelling or tenderness to palpation of the MCPs, PIPs or DIPs. Wrists Right Wrist: Full ROM to flexion and extension. No swelling or TTP Left Wrist: Full ROM to flexion and extension. No swelling or TTP Elbows Right Elbow: Full ROM. No swelling or TTP. No TTP of the medial epicondyle. No TTP of the lateral epicondyle Left Elbow: Full ROM. No swelling or TTP. No TTP of the medial epicondyle. No TTP of the lateral epicondyle Shoulders Right shoulder: Full ROM. No swelling noted. No TTP of the AC joint. No TTP of the subacromial bursa. No TTP of the posterior shoulder Left shoulder: Full ROM. No swelling noted. No TTP of the AC joint. No TTP of the subacromial bursa. No TTP of the posterior shoulder Knees Right knee: Full ROM. No swelling noted. No TTP of the knee joint line. No TTP of pes anserine bursa Left knee: Full ROM. No swelling noted. No TTP of the knee joint line. No TTP of pes anserine bursa. Crepitations felt bilaterally Ankles Right ankle: Good ankle dorsiflexion and plantar flexion. No swelling. No TTP of the ankle joint Left ankle: Good ankle dorsiflexion and plantar flexion. No swelling. No TTP of the ankle joint Feet Right foot: Negative squeeze test Left foot: Negative squeeze test Tender points? No tenderness to palpation of the bilateral trapezius, supraspinatus, anterior costochondral junctions, bilateral suboccipital muscle insertions SKIN No rashes Right Left Manager Biostatistics strength 5 5 Wrist flexion 5 5 Wrist extension 5 5 Elbow extension 5 5 Elbow flexion 5 5 Shoulder abduction 5 5 Shoulder adduction 5 5 Hip flexion 5 5 Knee extension 5 5 Knee flexion 5 5 Ankle dorsiflexion 5 5 Ankle plantar flexion 5 5 Results Reviewed Results Reviewed: Laboratory Tests 11/12/24 05/12/25 09:34 11:15 WBC 7.1 RBC 4.51 Hgb 13.2 Hct 40.0 Plt Count 328 ESR 18 22 H Sodium 142 Potassium 3.7 Chloride 104 Carbon Dioxide 31 H BUN 8 L Creatinine 0.53 AST 22 ALT 21 C-Reactive Protein 0.18 Laboratory Tests 05/12/25 11:15 Double Strand DNA Ab 2 Complement C3 140 Complement C4 22 Laboratory Tests 12/31/23 09:56 Rheumatoid Factor 329.9 H Cycl Citrul Peptide IgG >250 H ZBIGNIEW Screen POSITIVE A ZBIGNIEW Titer 1:320 H ZBIGNIEW Pattern Nuclear, Homogeneous A PL-12 Antibody 16 H SM/MANAGER OF IT IgG Antibody 1.1 POS A Anti-ds DNA Titer (Crith) 1:40 H Anti-ds DNA (Crithidia) Positive A Th/To MANAGER OF IT Ab 85 H ECHO 05/2024 Conclusions: - Essentially normal study Findings Left Ventricle Normal left ventricular size, thickness, and systolic function. The visually estimated ejection fraction is between 55-60%. Spectral Doppler is indicative of a normal filling pattern. Right Ventricle Normal right ventricular cavity size and systolic function. Atria The left atrium is likely dilated. There is no evidence of interatrial shunt. The right atrium is normal in size. Aortic Valve The aortic valve structure and function is likely normal. There is no aortic valve stenosis. There is no aortic valve regurgitation. Mitral Valve Normal mitral valve structure and function. There is trace mitral valve regurgitation. There is no mitral valve stenosis. Pulmonic Valve The pulmonic valve is likely normal. Tricuspid Valve Normal tricuspid valve structure. There is trace tricuspid valve regurgitation. The right ventricular systolic pressure is normal. The right ventricular systolic pressure is 17 mmHg. Normal right atrial pressure. There is no evidence of pulmonary hypertension. Great Vessels All visible segments of the aorta are normal in size. The pulmonary artery was not well visualized. Venous The inferior vena cava is normal in size and collapses greater than 50% with inspiration. Pericardium/Pleural There is no evidence of pericardial effusion. Assessment & Plan Assessment & Plan (1) Seropositive rheumatoid arthritis: Comment: +++RF+++CCP ++Th/To +DsDNA dx 12/2023 HCQ 01/2024 effective Code(s): M05.9 - Rheumatoid arthritis with rheumatoid factor, unspecified Category: Medical Plan: #Seropositive RA/Overlap syndrome Patient is a 69-year-old female with seropositive rheumatoid arthritis and potentially overlap syndrome here today for follow up. Currently in remission on Plaquenil monotherapy. Uses Medrol 4 flares p.r.n.. Plan - Plaquenil 300mg daily - Medrol 4-8mg daily prn - ECHO every 3-5 years to eval for pulm HTN - RTC 6 months - Labs before visit: CBC, CMP, ESR, CRP (2) Long-term use of hydroxychloroquine: Code(s): Z79.899 - Other [place] [facility] (current[facility] drug therapy Category: Medical Plan: #Long-term Use of Hydroxychloroquine Discussed with patient the risks and benefits of hydroxychloroquine in managing the rheumatic condition Benefits include: - Reduced pain, reduce mortality, maintenance of remission and reduction of flares Risks include: - GI upset, skin hyperpigmentation, retinal toxicity (especially after more than 5 years of use), myopathy Advised yearly ophthalmology visit Plan I spent 25 minutes reviewing the record and labs, taking a history, examining the patient, discussing the treatment plan, ordering diagnostic work up and documenting in the medical record Orders: Orders Complete Blood Count Auto Diff 6 Months Z79.899 - Other [place] [facility] (current) drug therapy C Reactive Protein 6 Months Z79.899 - Other salvage determiner (current) drug therapy Comprehensive Met. Panel 6 Months Z79.899 - Other salvage determiner (current) drug therapy Erythrocyte Sedimentation Rate 6 Months Z79.899 - Other [place] [facility] (current) drug therapy Medications: Refilled hydroxychloroquine 300 mg (1.5 x 200 mg) PO DAILY 135 tabs 1RF methylprednisolone 4 - 8 mg (1 - 2 x 4 mg) PO DAILY PRN 30 tabs 1RF for pain M05.9 - Rheumatoid arthritis with rheumatoid factor, unspecified Coding Level of Care Code Est Pt Level 3 (94773) Complex EM visit Add On G2211 Diagnoses Seropositive rheumatoid arthritis M05.9 Long-term use of hydroxychloroquine Z79.899
[2025-05-20 08:46] VITALS: BP 115/72; PULSE 67; O2SAT 98; BMI 32.9
--- OUTSIDE RECORDS SUMMARY | 2025-05-20 09:07 | XMS_ITS | Clinical Summary ---
Author Organization [facility] Address [address] [facility] [address] [place] [phone] Phone Care Team Providers Care Structural Steel Erector Name Role Phone Shayla Roblero MD Primary Care Provider Allergies Active Allergy Reactions Criticality Noted Date Comments Penicillin 11/12/2022 Medications amLODIPine (NORVASC) 5 MG tablet Take 1 tablet by mouth every morning. 3 Active atorvastatin (LIPITOR) 20 MG tablet Take 1 tablet by mouth every morning. 3 Active pantoprazole (PROTONIX) 20 MG tablet Take by mouth. 2 Active therapeutic multivitamin tablet Take 1 tablet by mouth daily. Active omega 5-eki-qlz-fish oil 1,000 mg (120 mg-180 mg) Cap Take 1 capsule by mouth daily. Active CALCIUM CARBONATE-VITAMIN D3 ORAL Take 1 tablet by mouth daily. Calcium 1200mg Active alendronate (FOSAMAX) 70 MG tablet Take 70 mg by mouth every 7 days. 4 Active hydroxychloroquin e (PLAQUENIL) 200 mg tablet Take 300 mg by mouth. Active methylPREDNISolon e (MEDROL) 4 MG tablet Take 4 mg by mouth daily. PRN 4 Active Active Problems Problem Noted Date Diagnosed Date Thyroid nodule 11/24/2022 Assessment & Plan (11/24/2022 9:37 PM EDT): 67-year-old woman with history of incidentally found [...] we could have her records from [facility] to help decide when she is due for ultrasound. Social History Tobacco Use Types Packs/Day Years Used Date Smoking Tobacco: Never Smokeless Tobacco: Never Tobacco Cessation:Counseling Given: Not Answered Alcohol Use Standard Drinks/Week Comments Yes 0 (1 standard drink = 0.6 oz pur e alcohol) Education Answer Date Recorded Are you interested in more education? Not on rossi e 11/07/2022 Are you concerned about learning? Not on file 11/07/2022 No 11/07/2022 No 11/07/2022 Digital Access Answer Date Recorded No 12/08/2022 No 12/08/2022 Reliable internet access at home? Not on file 12/08/2022 Device with a working camera? Not on file Comments Unknown Sex and Gender Information Value Date Recorded Sex Assigned at Not on file Legal Sex Female 9:38 AM EST Gender Identity Not on file Sexual Orientation Not on file Last Filed Vital Signs Vital Sign Reading Time Taken Comments Blood Pressure 112/74 06/07/2024 3:23 PM EST Pulse 62 06/07/2024 3:23 PM EST Temperature - - Respiratory Rate - - Oxygen Saturation 99% 06/07/2024 3:23 PM EST Inhaled Oxygen Concentration - - Weight 61.7 kg (136 lb) 11/12/2022 2:32 PM EDT Height 155 cm (5' 1.02 ) 11/12/2022 2:32 PM EDT Body Mass Index 25.68 11/12/2022 2:32 PM EDT Plan of Treatment Upcoming Encounters Date Type Department Care Team (Late st Contact Info) Description 06/13/2025 9:40 AM EST Office Visit [facility] [address] [place] [address] [place] [address] Libby Porter MD [address] [place] [phone] [email or web address] Health Maintenance Due Date Last Done Comments DEPRESSION SCREENING 1969 HEPATITIS C SCREENING 1975 SCREENING FOR DIABETES 1992 MAMMOGRAM 1997 COLOGUARD 2002 COLONOSCOPY 2002 COLORECTAL CANCER SCREENING 2002 FIT TEST 2002 FOBT 2002 SIGMOIDOSCOPY 2002 VIRTUAL COLONOSCOPY 2002 ZOSTER VACCINES (1 of 2) 2007 INFLUENZA VACCINE (#1) 2025 , 05/04/2020, 05/31/2019 COVID-19 VACCINE ( season) 2025 01/01/2022, 07/04/2021, 09/14/2020, Additional history exists LIPID PANEL 06/19/2028 06/19/2023 Adult Td,Tdap Booster 03/20/2032 03/20/2022 RSV VACCINE (1 - 1-dose 75+ series) 2032 PNEUMOCOCCAL VACCINES (50+ years) Completed 07/24/2022 OSTEOPOROSIS SCREENING INITIAL (ONE-TIME) Completed 08/07/2023 SMOKING STATUS SCREENING (Once After 26 Yrs) Completed 06/07/2024 HEPATITIS A VACCINES Aged Out No long er eligible based on patient's age to complete this topic HIB VACCINES Aged Out No longer eligi ble based on patient's age to complete this topic MENINGOCOCCAL VACCINES (ACWY) Aged Out No longer eligible based on patient's age to complete this topic MENINGOCOCCAL VACCINES (B) Aged Out N o longer eligible based on patient's age to complete this topic Medical Devices Not on file Procedures Procedure Name Priority Date/Time Associated Diagnosis Comments HM DEXA SCAN Routine 08/07/2023 12:36 PM EST from Last 3 Months or Most Recently Relevant to Health Maintenance Results * HM DEXA SCAN (08/07/2023 12:36 PM EST) Libby Porter MD HEALTH MAINTENANCE Final Resul t from Last 3 Months or Most Recently Relevant to Health Maintenance Insurance [employer] P[employer] MEDICARE REPLACEMENT [employer] PPO MEDICARE REPLACEMENT [employer] P[employer] MEDICARE REPLACEMENT [employer] P[employer] MEDICARE REPLACEMENT [employer] P[employer] MEDICARE REPLACEMENT [employer] P[employer] MEDICARE REPLACEMENT Care Teams Structural Steel Erector Relationship Specialty Start Date End Date Shayla Roblero MD [address] [place] [phone] [email or web address] PCP - General Family Medicine 06/07/24 Additional Source Comments The information contained in this document represents components of the legal health record. It is not the complete legal health record.[facility]
--- OUTSIDE RECORDS SUMMARY | 2025-05-20 09:07 | XMS_ITS | Clinical Summary ---
Author Organization [facility] [address] [facility] lding Address [address] [place] [address] Phone Care Team Providers Care Hot Iron Worker Name Role Phone Shayla Roblero MD Primary [...] Date Diagnosed Date Seropositive rheumatoid arth ritis ([facility] V24, [facility] V28) 02/25/2024 Osteoporosis 12/17/2023 Overview (04/27/2024): 12/04 [...] so we could have her records from [facility] to help decide when she is due [...] (ages 12 & older) Bivalent, COVID-19 05/14 im3D Covid-19 Bivalent, Or iginal + Ba.1 (Non-US [employer]adem[employer] Bivalent) 05/30/2022 im3D SARS-CoV-2 COVID-19, mRNA, LNP-S, preservative free 07/04/2021 [...] 2:30 PM EST Office Visit Adult Medicine [address] [phone] Jus Rutledge, PA [address] [place] [phone] 11/25/2025 9:00 AM EDT Appointment [facility] Bone Density [address] [place] [address] Health Maintenance Due Date Last [...] Date/Time Associated Diagnosis Comments EXTERNAL CLINICAL LAB 05/13/2025 HEPATITIS C ANTIBODY Routine 12/10/2024 9:52 AM EDT Adult general medical examination COMPREHENSIVE METABOLIC PANEL Routine 12/10/2024 9:52 AM EDT Adult general medical examination Primary hypertension Mixed hyperlipidemia LIPID PANEL WITH REFLEX TO DIRECT LDL Routine 12/10/2024 9:52 AM EDT Adult general medical examination Mixed hyperlipidemia [facility] DEXA AXIAL SKELETON Routine 11/21/2023 11:19 AM EDT Encounter for screening for osteoporosis HM COLONOSCOPY Routine 08/23/2021 from Last 3 Months or Most Recently Relevant to Health Maintenance Results * External clinical lab (05/13/2025) us Provider [facility] LAB BLOOD ORDERABLES Fin al Result * Hepatitis C antibody (12/10/2024 9:52 AM EDT) [facility] Hepatitis C Antibody Negative Negative LAB CHEMISTRY METHOD 12/10/2024 4:31 PM EDT [facility] Blood Venous blood specimen / Unknown Venipuncture / Unknown 12/10/2024 9:52 AM EDT 12/10/2024 9:52 AM EDT Jus ACOSTA LAB BLOOD ORDERABLES Final Re sult [facility] [address] [place] [address], [place] [phone] * Lipid panel with reflex to direct LDL (12/10/2024 9:52 AM EDT) [facility] Cholesterol 159 0 - 200 mg/dL LAB CHEMISTRY METHOD 12/10/2024 3:21 PM EDT [facility] Triglycerides 82 0 - 150 mg/dL LAB CHEMISTRY METHOD 12/10/2024 3:21 PM EDT [facility] HDL 79 >=40 mg/dL LAB CHEMISTRY METHOD 12/10/2024 3:21 PM EDT [facility] LDL Calculated 64 0 - 100 mg/dL LAB CHEMISTRY METHOD 12/10/2024 3:21 PM EDT [facility] VLDL Cholesterol Jose 16.4 mg/dL LAB CHEMISTRY METHOD 12/10/2024 3:21 PM EDT [facility] Non HDL Chol. (LDL+VLDL) 80 <145 mg/dL LAB CHEMISTRY METHOD 12/10/2024 3:21 PM EDT [facility] Chol/HDL Ratio 2.0 0.0 - 4.4 LAB CHEMISTRY METHOD 12/10/2024 3:21 PM EDT [facility] Blood Venous blood specimen / Unknown Venipuncture / Unknown 12/10/2024 9:52 AM EDT 12/10/2024 9:52 AM EDT Jus ACOSTA LAB BLOOD ORDERABLES Final Re sult [facility] [address] [place] [address], [place] [phone] * Comprehensive metabolic panel (12/10/2024 9:52 AM EDT) Sodium 140 133 - 145 mmol/L LAB CHEMISTRY METHOD 12/10/2024 3:21 PM [facility] Potassium 4.2 3.5 - 5.5 mmol/L LAB CHEMISTRY METHOD 12/10/2024 3:21 PM [facility] Chloride 105 96 - 110 mmol/L LAB CHEMISTRY METHOD 12/10/2024 3:21 PM [facility] CO2 31 21 - 32 mmol/L LAB CHEMISTRY METHOD 12/10/2024 3:21 PM [facility] Anion Gap 4 3 - 11 LAB CHEMISTRY METHOD 12/10/2024 3:21 PM [facility] Glucose 89 70 - 100 mg/dL LAB CHEMISTRY METHOD 12/10/2024 3:21 PM [facility] BUN 9 5 - 25 mg/dL LAB CHEMISTRY METHOD 12/10/2024 3:21 PM [facility] Creatinine 0.54 0.50 - 1.10 mg/dL LAB CHEMISTRY METHOD 12/10/2024 3:21 PM [facility] eGFR 101 >=60 mL/min/1. 73m2 LAB CHEMISTRY METHOD 12/10/2024 3:21 PM [facility] Comment:Calculation based on the Chronic Kidney Disease Epidemiology Collaboration (CKD-EPI) equation refit without adjustment for race. BUN/Creatinine Ratio 16.7 LAB CHEMISTRY METHOD 12/10/2024 3:21 PM [facility] Calcium 9.2 8.5 - 10.5 mg/dL LAB CHEMISTRY METHOD 12/10/2024 3:21 PM [facility] AST (SGOT) 21 10 - 42 unit/L LAB CHEMISTRY METHOD 12/10/2024 3:21 PM [facility] ALT (SGPT) 29 10 - 60 unit/L LAB CHEMISTRY METHOD 12/10/2024 3:21 PM [facility] Alkaline Phosphatase 93 42 - 121 unit/L LAB CHEMISTRY METHOD 12/10/2024 3:21 PM [facility] Total Protein 7.7 6.0 - 8.0 g/dL LAB CHEMISTRY METHOD 12/10/2024 3:21 PM [facility] Albumin 3.9 3.2 - 5.0 g/dL LAB CHEMISTRY METHOD 12/10/2024 3:21 PM [facility] Total Bilirubin 0.6 0.0 - 1.4 mg/dL LAB CHEMISTRY METHOD 12/10/2024 3:21 PM [facility] Blood Venous blood specimen / Unknown Venipuncture / Unknown 12/10/2024 9:52 AM EDT 12/10/2024 9:52 AM EDT us Jus ACOSTA LAB BLOOD ORDERABLES Final Re sult [facility] [address] [place] [address], * [facility] DEXA AXIAL SKELETON (11/21/2023 11:19 AM EDT) Anatomical Region Laterality Modality Mammography 11/21/2023 10:3 0 AM EDT Narrative 11/21/2023 11:19 AM EDT [facility] Diagnostic Imaging Department [address] [place] [address] Patient: BLACK CAMERON /Age/Sex: 1955 68 - F Unit#: [id number] Location/Status: [facility] CLI Mnemonic[facility] Ordering Physician: BETITO DIEGO [facility] Dexa Axial Skeleton - 11/21/23 - [id number] Report Status:Signed HISTORY: The patient is a [...] probability of hip fracture of 3.1%. Code 89294 Dictating Physician: HAILE LEIJA MD Electronically Signed by: HAILE LEIJA MD Dic Date/Time: 11/21/23 111 Sign date/Time: 11/21/23 111 Procedure Note Haile Leija MD - 03/01/2024 [facility] Diagnostic Imaging Department [address] [place] [address] Patient: BLACK CAMERON/Age/Sex: 1955 - 68 - F Unit#: [id number] Location/Status: [facility]/REG CLI Mnemonic[facility] Ordering Physician: BETITO DIEGO [facility] Dexa Axial [...] density of the femurs bilaterally is 0.782 gm/dy4nnxcy is 78% of that of young normals [...] probability of hip fracture of 3.1%. Code 27091 Dictating Physician: HAILE LEIJA MD Electronically Signed by: HAILE LEIJA MD Dic Date/Time: 11/21/23 1116 Sign date/Time: 11/21/23 1119 Betito ACOSTA IMTony BI PROCEDURES Final Result * Colonoscopy (08/23/2021) Colonoscopy no interpretation , abstracted Anatomical Region Laterality Modality Other Historical Provider HEALTH MAINTENANCE Final Result from Last 3 Months or Most Recently Relevant to Health Maintenance Insurance [facility] MEDICARE ADVANTAGE on file Care Teams Hot Iron Worker Relationship Specialty Start Date End Date Shayla Roblero MD [address] [place] [phone] PCP - General 04/04/23
--- OUTSIDE RECORDS SUMMARY | 2025-05-20 09:07 | XMS_ITS | Clinical Summary ---
Author Organization [facility] Address [address] [place] [address] Care Team Providers Care Electronic Warfare Officer Name Role Phone Unavailable Primary Care Provider [...] Fecal DNA 2002 Flexible Sigmoidoscopy 2002 Imm-Pneumococcal 50+ (1 of 1 - PCV) 2007 Imm-Zoster, Recombinant (1 of 2) 2007 Bone Density Screening 2022 Falls Prevention 2022 Alcohol and Drug Screen 07/14/2024 Depression Annual Screen 07/14/2024 [id number] (2 - season) 2025 021 Imm-Influenza (#1) 2025 05/04/2020, 05/31/2019 Insurance Aviate [facility]
== END 2025-05-20 09:08 | disposition home or self-care (01) ==
LOC: HO.RHES 08:35
PROVIDERS: PCP Physician Assistant Medical; Visit Provider Student in an Organized Health Care Education/Training Program
DX: M05.9 Rheumatoid arthritis with rheumatoid factor, unspecified (principal); Z79.899 Other long term (current) drug therapy
CPT/HCPCS: 99213; G2211

== ENCOUNTER → 2025-05-20 08:34 | Outpatient (BNVA) | payer MEDICARE, SELFPAY | PROVIDERS: PCP Physician Assistant Medical; Visit Provider Student in an Organized Health Care Education/Training Program | DX: M05.9 Rheumatoid arthritis with rheumatoid factor, unspecified (principal); Z83.2 Family history of diseases of the blood and blood-forming organs and certain disorders involving the immune mechanism; Z79.899 Other long term (current) drug therapy | CPT/HCPCS: 99212 ==